=== PATIENT | female | born 1970 | race Caucasian/White ===

== ENCOUNTER 2017-05-26 19:11 | Emergency (ER) | payer OTHER ==
[2017-05-26] MEDS ORDERED: TETANUS/DIPHTHERIA/PERTUSSIS 0.5 ML SYRINGE IM ONE (19:58)
[2017-05-26 21:55] VITALS: BP 106/68
--- NOTE | 2017-05-26 21:57 | ED Physician Documentation ---
PD HPI ANIMAL BITE - Stated complaint Stated Complaint: CAT BITE - Chief complaint Chief Complaint: Laceration - History obtained from History obtained from: Patient - History of Present Illness Location of injury(ies): RUE (wrist and forearm) Details of the event: Cat, Pet animal, Well appearing Timing - onset: Today Timing - details: Abrupt onset, Still present Worsened by: Palpating. No: Moving Associated symptoms: Swelling. 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, Other - Present Medications Home Medications: Ambulatory Orders Medication Instructions Recorded Confirmed Amox/Clav 875/125 [Augmentin] 1 each PO BID #10 tablet 05/26/17 - Allergies Allergies/Adverse Reactions: Allergies Allergy/AdvReac Type Severity Reaction Status Date / Time acetaminophen AdvReac Severe Anxiety Verified 05/26/17 19:55 [From Darvocet-N 100] meperidine HCl * AdvReac Severe Anxiety Verified 05/26/17 19:55 [From Demerol] propoxyphene napsylate * AdvReac Severe Anxiety Verified 05/26/17 19:55 [From Darvocet-N 100] - Social History Does the pt smoke?: No Smoking Status: Never smoker Does the pt drink ETOH?: No Does the pt have substance abuse?: No - Immunizations Immunizations are current?: Yes - POLST Patient has POLST: No PD ED PE NORMAL - Vitals Vital signs reviewed: Yes - General General: Alert and oriented X 3, No acute distress, Well developed/nourished - Derm Derm: Normal color, Warm and dry - Extremities Extremities: Other (right wrist and forearm with small puncture lacs without bleeding. She is able to flex and extend at wrist and fingers without pain. ) - Neuro Neuro: Alert and oriented X 3, No motor deficit, No sensory deficit Results - Vitals Vitals: Oxygen O2 Source Room air PD MEDICAL DECISION MAKING - ED course Complexity details: considered differential, d/w patient Departure - Departure Disposition: 01 Home, Self Care Clinical Impression: Cat bite Qualifiers: Encounter type: initial encounter Qualified Code(s): W55.01XA - Bitten by cat, initial encounter Condition: Stable Record reviewed to determine appropriate education?: Yes Instructions: ED Bite Animal General Follow-Up: Romy Martinez ARNP [Primary Care Provider] - Prescriptions: Amox/Clav 875/125 [Augmentin] 1 each PO BID #10 tablet Comments: Cleanse wound to 3 times a day with soap and water and apply some ointment. Bites like this are higher risk for infection so we commonly go some antibiotics Augmentin twice daily for 3-5 days. Recheck if signs of infection. Tylenol or ibuprofen if needed for pains. You did receive a tetanus booster here. Discharge Date/Time: 05/26/17 22:30
[2017-05-26] MEDS ORDERED: AMOX/CLAV 875 MG/125 MG TABLET PO STA (22:18)
== END 2017-05-26 22:30 | disposition home or self-care (01) ==
LOC: ED 19:11
DX: S61.531A Puncture wound without foreign body of right wrist, initial encounter (principal); S51.831A Puncture wound without foreign body of right forearm, initial encounter; W55.01XA Bitten by cat, initial encounter; Z86.718 Personal history of other venous thrombosis and embolism; Z23 Encounter for immunization
CPT/HCPCS: 90471; 90715; 99283; A9270

== ENCOUNTER 2017-05-27 21:55 | Emergency (ER) | payer OTHER ==
--- NOTE | 2017-05-27 21:57 | ED Physician Documentation ---
PD HPI ANIMAL BITE - Stated complaint Stated Complaint: CAT BITE/FEVER - History obtained from History obtained from: Patient - History of Present Illness Location of injury(ies): RUE (wrist) Details of the event: Cat Timing - onset: Yesterday (see ER note from yesterday.) Timing - details: Abrupt onset Recently seen: Emergency Dept (yesterday after the original bite.) Review of Systems Constitutional: reports: Fever (subjective earlier). 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, Other - Present Medications Home Medications: Ambulatory Orders Medication Instructions Recorded Confirmed Amox/Clav 875/125 [Augmentin] 1 each PO BID #10 tablet 05/26/17 - Allergies Allergies/Adverse Reactions: Allergies Allergy/AdvReac Type Severity Reaction Status Date / Time acetaminophen AdvReac Severe Anxiety Verified 05/26/17 19:55 [From Darvocet-N 100] meperidine HCl * AdvReac Severe Anxiety Verified 05/26/17 19:55 [From Demerol] propoxyphene napsylate * AdvReac Severe Anxiety Verified 05/26/17 19:55 [From Darvocet-N 100] - Social History Does the pt smoke?: No Smoking Status: Never smoker Does the pt drink ETOH?: No Does the pt have substance abuse?: No - Immunizations Immunizations are current?: Yes - POLST Patient has POLST: No PD ED PE NORMAL - Vitals Vital signs reviewed: Yes - General General: Alert and oriented X 3, No acute distress, Well developed/nourished - Derm Derm: Warm and dry, Other (redness dorsum wrist with swelling that extends to distal forearm. No pain with passive ROM of the fingers. Active ROM of the wrist hurts at wound. ) - Extremities Extremities: No deformity, No tenderness to palpate - Neuro Neuro: Alert and oriented X 3, No motor deficit, Normal speech Results - Vitals Vitals: Vital Signs - 24 hr 05/27/17 05/27/17 21:59 23:29 Temperature 36.0 C L Heart Rate 93 79 Respiratory 18 18 Rate Blood Pressure 114/79 101/64 O2 Saturation 93 95 Oxygen O2 Source Room air PD MEDICAL DECISION MAKING - ED course Complexity details: reviewed old records, considered differential (Blossoming wound infection from bite yesterday. Presume Pasteurella. Will give IV dose abx. She is not seeming septic. Consider early tenosynovbitis, though not clearly there at this point. To recheck in 1-2 days. ), d/w patient Departure - Departure Disposition: 01 Home, Self Care Clinical Impression: Infected hand Cat bite Qualifiers: Encounter type: initial encounter Qualified Code(s): W55.01XA - Bitten by cat, initial encounter Condition: Stable Record reviewed to determine appropriate education?: Yes Follow-Up: Romy Martienz ARNP [Primary Care Provider] - Comments: Continue the current antibiotics Augmentin twice daily. Use a wrist splint to help support the wrist. Use the hydrocodone if needed for pain. Recheck in 1- 2 days with your primary care if starting to do better. Return to the ER tomorrow if it is worsening. Discharge Date/Time: 05/27/17 23:29
[2017-05-27] MEDS ORDERED: KETOROLAC 60 MG/2 ML VIAL IVP STA (22:18)
[2017-05-27] MEDS ORDERED: AMPICILLIN/SULBACTAM 1.5 GM in SODIUM CHLORIDE 0.9% MINIBAG 100 ML IV STA (22:18)
[2017-05-27] MEDS ORDERED: HYDROcod/ACET 5/325 Prepack 4 PO STA (22:59)
[2017-05-27 23:30] VITALS: BP 101/64
== END 2017-05-27 23:29 | disposition home or self-care (01) ==
LOC: ED 21:55
DX: S60.871A Other superficial bite of right wrist, initial encounter (principal); L08.9 Local infection of the skin and subcutaneous tissue, unspecified; W55.01XA Bitten by cat, initial encounter
CPT/HCPCS: 96374; 96375; 99283

== ENCOUNTER 2017-05-28 15:16 | Emergency (ER) | payer OTHER ==
[2017-05-28] MEDS ORDERED: AMPICILLIN/SULBACTAM 3 GM in SODIUM CHLORIDE 0.9% MINIBAG 100 ML IV STA (16:04)
--- NOTE | 2017-05-28 16:07 | ED Physician Documentation ---
PD HPI UPPER EXT INJURY - Stated complaint Stated Complaint: FEVER/CAT BITE RT HAND - Chief complaint Chief Complaint: Ext Problem - History obtained from History obtained from: Patient - History of Present Illness Location: Other (2 nights ago around 7:00 she was bitten to the right wrist by her indoor and fully immunized cat. She came in and got a tetanus shot and was started on Augmentin but she has had progressive cellulitis and pain there. She was seen here last night and given a dose of IV Unasyn. Told to return if it gets worse. She actually got worse this morning but somewhat got better this afternoon. 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 - Present Medications Home Medications: Ambulatory Orders Medication Instructions Recorded Confirmed Amox/Clav 875/125 [Augmentin] 1 each PO BID #10 tablet 05/26/17 - Allergies Allergies/Adverse Reactions: Allergies Allergy/AdvReac Type Severity Reaction Status Date / Time acetaminophen AdvReac Severe Anxiety Verified 05/28/17 15:29 [From Darvocet-N 100] meperidine HCl * AdvReac Severe Anxiety Verified 05/28/17 15:29 [From Demerol] propoxyphene napsylate * AdvReac Severe Anxiety Verified 05/28/17 15:29 [From Darvocet-N 100] - Social History Does the pt smoke?: No Smoking Status: Never smoker Does the pt drink ETOH?: No Does the pt have substance abuse?: No - Immunizations Immunizations are current?: Yes - POLST Patient has POLST: No PD ED PE NORMAL - Vitals Vital signs reviewed: Yes - General General: Alert and oriented X 3, No acute distress - HEENT HEENT: PERRL, EOMI - Neck Neck: Supple, no meningeal sign, No bony TTP - Cardiac Cardiac: RRR, No murmur - Respiratory Respiratory: No respiratory distress, Clear bilaterally - Abdomen Abdomen: Normal bowel sounds, Soft, Non tender - Back Back: No CVA TTP, No spinal TTP - Derm Derm: Normal color, Warm and dry - Extremities Extremities: Other (There is 2 puncture wounds near the right wrist, one dorsally kind of over the lunate probably. I was able to get some fluid from this wound and it was sent for culture. There is another smaller wound over the radial side of the wrist. There is modest swelling over the carpals in the hand and diminished range of motion somewhat of the wrist in flexion and extension. It is not severely tender and not locked in position though.) - Neuro Neuro: Alert and oriented X 3, Normal speech Results - Vitals Vitals: Vital Signs - 24 hr 05/28/17 15:26 Temperature 36.9 C Heart Rate 81 Respiratory 16 Rate Blood Pressure 113/68 O2 Saturation 98 Oxygen O2 Source Room air - Labs Labs: Laboratory Tests 05/28/17 05/28/17 16:15 16:15 WBC 8.1 RBC 4.28 Hgb 13.2 Hct 40.0 MCV 93.5 MCH 30.8 MCHC 32.9 RDW 12.4 Plt Count 279 MPV 7.5 L Neut # 5.4 Lymph # 1.6 Letcher # 0.7 Eos # 0.4 Baso # 0.1 Absolute Nucleated RBC 0.00 Nucleated RBC % 0.0 Sodium 137 Potassium 3.4 L Chloride 103 Carbon Dioxide 25 Anion Gap 9.0 BUN 11 Creatinine 0.7 Estimated GFR (MDRD) 89 Glucose 106 H Calcium 8.7 PD MEDICAL DECISION MAKING - ED course ED course: So she does have limited range of motion, but she says she is better this afternoon than she was this morning and she does have some range of motion. Case was discussed by phone with the orthopedic consultants, Dr. Bolton who feels like another day of oral antibiotics is warranted before more aggressive care. Departure - Departure Disposition: 01 Home, Self Care Clinical Impression: Infected hand Cat bite Qualifiers: Encounter type: initial encounter Qualified Code(s): W55.01XA - Bitten by cat, initial encounter Condition: Good Record reviewed to determine appropriate education?: Yes Comments: As discussed I expect continued improved symptoms over the next 12-24 hours. If that is not happening please return tomorrow for reevaluation.
[2017-05-28 16:24] LABS: BASOPHILS # (AUTO) 0.1 10^3/uL (0.0-0.1); BASOPHILS % (AUTO) 0.9 %; EOSINOPHILS # (AUTO) 0.4 10^3/uL (0.0-0.7); EOSINOPHILS % (AUTO) 4.5 %; HGB - HEMOGLOBIN 13.2 g/dL (12.0-16.0); LYMPHOCYTES # (AUTO) 1.6 10^3/uL (1.5-3.5); LYMPHOCYTES % (AUTO) 19.4 %; MEAN CORPUSCULAR HEMOGLOBIN 30.8 pg (27.0-31.0); MEAN CORPUSCULAR HGB CONC 32.9 g/dL (32.0-36.0); MEAN CORPUSCULAR VOLUME 93.5 fL (81.0-99.0); MEAN PLATELET VOLUME 7.5 fL (7.9-10.8); MONOCYTES # (AUTO) 0.7 10^3/uL (0.0-1.0); MONOCYTES % (AUTO) 8.6 %; NEUTROPHILS # (AUTO) 5.4 10^3/uL (1.5-6.6); NEUTROPHILS % (AUTO) 66.6 %; PLT - PLATELET COUNT 279 10^3/uL (130-450); RED BLOOD COUNT 4.28 10^6/uL (4.20-5.40); RED CELL DISTRIBUTION WIDTH 12.4 % (12.0-15.0); WHITE BLOOD COUNT 8.1 x10^3/uL (4.8-10.8)
[2017-05-28 16:32] LABS: CALCIUM 8.7 mg/dL (8.5-10.3); CREATININE 0.7 mg/dL (0.4-1.0)
[2017-05-28 17:29] VITALS: BP 113/64
== END 2017-05-28 17:23 | disposition home or self-care (01) ==
LOC: ED 15:16
DX: S61.431D Puncture wound without foreign body of right hand, subsequent encounter (principal); L03.113 Cellulitis of right upper limb; W55.01XD Bitten by cat, subsequent encounter; Z86.718 Personal history of other venous thrombosis and embolism
CPT/HCPCS: 36415; 80048; 85025; 87070; 87205; 99283

== ENCOUNTER 2017-05-28 22:26 | Inpatient (IN) | payer OTHER ==
[2017-05-28] MEDS ORDERED: AMPICILLIN/SULBACTAM 3 GM in SODIUM CHLORIDE 0.9% MINIBAG 100 ML IV STA (23:30)
[2017-05-28] MEDS ORDERED: VANCOMYCIN INJ 1.5 GM in SODIUM CHLORIDE 0.9% 500 ML IV STA (23:30)
--- NOTE | 2017-05-28 23:32 | ED Physician Documentation ---
PD HPI UPPER EXT INJURY - Stated complaint Stated Complaint: RT HAND/ARM SWELL - Chief complaint Chief Complaint: Ext Problem - History obtained from History obtained from: Patient - History of Present Illness Location: Right, Wrist Type of injury: Other (See my earlier note, basically a cat bite at home a little over 2 days ago now with signs of infection. Worse and febrile tonight. Fourth visit to the ER. Not much pain though. 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 - Present Medications Home Medications: Ambulatory Orders Medication Instructions Recorded Confirmed Amox/Clav 875/125 [Augmentin] 1 each PO BID #10 tablet 05/26/17 - Allergies Allergies/Adverse Reactions: Allergies Allergy/AdvReac Type Severity Reaction Status Date / Time acetaminophen AdvReac Severe Anxiety Verified 05/28/17 22:35 [From Darvocet-N 100] meperidine HCl * AdvReac Severe Anxiety Verified 05/28/17 22:35 [From Demerol] propoxyphene napsylate * AdvReac Severe Anxiety Verified 05/28/17 22:35 [From Darvocet-N 100] - Social History Does the pt smoke?: No Smoking Status: Never smoker Does the pt drink ETOH?: No Does the pt have substance abuse?: No - Family History Family history: reports: Non contributory - Immunizations Immunizations are current?: Yes - POLST Patient has POLST: No PD ED PE NORMAL - Vitals Vital signs reviewed: Yes - General General: Alert and oriented X 3, No acute distress - HEENT HEENT: PERRL, EOMI - Neck Neck: Supple, no meningeal sign, No bony TTP - Cardiac Cardiac: RRR, No murmur - Respiratory Respiratory: No respiratory distress, Clear bilaterally - Abdomen Abdomen: Soft, Non tender - Back Back: No CVA TTP, No spinal TTP - Derm Derm: Normal color, Warm and dry - Extremities Extremities: No deformity, No tenderness to palpate, Other (She has cellulitis from the metacarpals distally now to about a third of the way up the forearm and she has less range of motion at the right wrist than she did earlier in the day.) - Neuro Neuro: Alert and oriented X 3, Normal speech - Psych Psych: Normal mood, Normal affect Results - Vitals Vitals: Vital Signs - 24 hr 05/28/17 22:31 Temperature 38.5 C H Heart Rate 78 Respiratory 18 Rate Blood Pressure 118/67 O2 Saturation 99 Oxygen O2 Source Room air PD MEDICAL DECISION MAKING - ED course ED course: 46-year-old woman with cat bite related cellulitis that is worsening despite outpatient treatment and now febrile. Spoke with Dr. Weaver, the on-call orthopedist who will see in consult. Gave her vancomycin and Unasyn here in the ER and called to Dr. Rose for admission at 11:33 PM. Note made that a wound culture was done earlier in the day on prior account. Departure - Departure Disposition: [facility] DC/Xfer Clinical Impression: Infected hand Cat bite Qualifiers: Encounter type: initial encounter Qualified Code(s): W55.01XA - Bitten by cat, initial encounter Condition: Stable
[2017-05-29] MEDS ORDERED: IBUPROFEN 600 MG TABLET PO PRN (00:40)
[2017-05-29] MEDS ORDERED: MORPHINE 2 MG/ML CARPUJECT IVP PRN (00:40)
[2017-05-29] MEDS ORDERED: ONDANSETRON 4 MG/2 ML VIAL IVP PRN (00:40)
[2017-05-29] MEDS ORDERED: TEMAZEPAM 15 MG CAPSULE PO PRN (00:40)
[2017-05-29] MEDS ORDERED: SODIUM CHLORIDE FLUSH 0.9% 10 ML SYRINGE IVP PRN (00:40)
[2017-05-29] MEDS ORDERED: VANCOMYCIN 1 GM VIAL ONE (00:42)
[2017-05-29] MEDS: SODIUM CHLORIDE FLUSH 0.9% 10 ML SYRINGE IVP SCH ×3 (02:51→16:11)
[2017-05-29] MEDS: DEXTROSE 5%-0.9% NACL 1,000 ML IV SCH ×2 (02:51→14:12)
--- NOTE | 2017-05-29 04:18 | HISTORY & PHYSICAL EXAMINATION ---
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 She takes no prescription medications. Two days ago, she was bitten by her cat on the dorsal aspect of her right wrist and came to the emergency room. She was given tetanus prophylaxis and sent home with antibiotics. She developed worsening swelling and pain in the area and has now had 4 evaluations in the emergency room, including this one, with swelling that was increasing and now a fever as high as 39. She is being admitted for cellulitis after a cat bite and failure of p.o. antibiotics. She has had no other fever until now. She had pain and was using only an ice pack, because she is allergic to several pain meds. REVIEW OF SYSTEMS: A comprehensive review of systems was performed and the pertinent positives are as above, all else are negative. PAST MEDICAL HISTORY: Vertigo after general anesthesia for a INTERNET SALES DIRECTOR surgery. MEDICATIONS AT HOME: None, except for recent oral Augmentin. ALLERGIES 1. TYLENOL. 2. DEMEROL. 3. PROPOXYPHENE. 4. MORPHINE. SOCIAL HISTORY: She is a nonsmoker, who never smoked. Drinks social alcohol. No illicit drug use. 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 FAMILY HISTORY: No inherited diseases. PHYSICAL EXAMINATION GENERAL: White female who is in no distress. VITAL SIGNS: Blood pressure 115/65, pulse of 70 and sinus rhythm, 38.5 was her most recent temperature, room air saturation 98%. HEENT: Unremarkable. NECK: Without JVD or carotid bruits. LUNGS: Clear. HEART: Heart sounds normal. No audible murmur. ABDOMEN: Soft, positive bowel sounds, nontender. EXTREMITIES: The legs have no clubbing, cyanosis or edema. The right dorsum of the wrist has a 2 mm red dasha from the cat bite and surrounding that and going distally toward the hand there is swelling, but no redness and there is mild warmth and tenderness. NEUROLOGIC: Intact. LABORATORIES: Sodium 137, potassium 3.4, normal BUN and creatinine. White blood count 8.1, hemoglobin 13.2, platelet count 279. No imaging was done. No EKG was done. IMPRESSION 1. Cellulitis of the right lower arm. 2. Cat bite of the right wrist. 3. Infected cat bite of the wrist. PLAN: IV pain medications. IV antibiotics. Orthopedic consult for further management advice. DEEP VENOUS THROMBOSIS PROPHYLAXIS: SCDs. CODE STATUS: FULL CODE. ATTESTATION: The patient is expected to be discharged or transferred to another facility within 96 hours: Yes. TD: 05/29/2017 04:17 [facility]
[2017-05-29 06:14] LABS: BASOPHILS # (AUTO) 0.1 10^3/uL (0.0-0.1); BASOPHILS % (AUTO) 0.8 %; EOSINOPHILS # (AUTO) 0.5 10^3/uL (0.0-0.7); HGB - HEMOGLOBIN 12.9 g/dL (12.0-16.0); LYMPHOCYTES # (AUTO) 2.2 10^3/uL (1.5-3.5); LYMPHOCYTES % (AUTO) 31.1 %; MEAN CORPUSCULAR HEMOGLOBIN 31.2 pg (27.0-31.0); MEAN CORPUSCULAR VOLUME 94.5 fL (81.0-99.0); MEAN PLATELET VOLUME 7.6 fL (7.9-10.8); MONOCYTES # (AUTO) 0.6 10^3/uL (0.0-1.0); MONOCYTES % (AUTO) 9.1 %; NEUTROPHILS # (AUTO) 3.7 10^3/uL (1.5-6.6); PLT - PLATELET COUNT 247 10^3/uL (130-450); RED BLOOD COUNT 4.13 10^6/uL (4.20-5.40); RED CELL DISTRIBUTION WIDTH 12.6 % (12.0-15.0); WHITE BLOOD COUNT 7.1 x10^3/uL (4.8-10.8)
[2017-05-29] MEDS: AMPICILLIN/SULBACTAM 3 GM in SODIUM CHLORIDE 0.9% MINIBAG 100 ML IV SCH ×2 (09:00→16:09)
[2017-05-29] MEDS: FAMOTIDINE 20 MG TABLET PO SCH (09:07)
[2017-05-29] MEDS: POLYETHYLENE GLYCOL 3350 17 GM PACKET PO SCH (09:07)
--- NOTE | 2017-05-29 11:00 | CONSULTATION NOTE ---
DATE OF SERVICE: 05/29/2017 Physician: Castillo Forbes MD HISTORY OF PRESENT ILLNESS: This 46-year-old woman was admitted to the ER last night after her third presentation following a cat bite to her right dominant hand. Three days ago, her pet bit her towards the radial aspect of the wrist with 2 tooth carrasco dorsal and 1 to the radial aspect. She did clean the wounds very well initially. The day following in the evening, she presented to the emergency room having increased redness and pain. She got an IV medication after which she improved and went home. She was home on Augmentin twice a day. The following evening, she came in again because of a bright red discoloration and swelling, which went from her distal forearm all the way to the tips of her fingers on the dorsal side. Again she got some IV antibiotics, improved a great deal, and went home. Last night, she presented again with similar pattern, although she thinks it was even redder than it had been before and definitely more swollen. She has been in the hospital overnight. She reports at home, and here in the hospital, she had her forearm and hand elevated. This morning she notes she is entirely improved except just around the original bite carrasco. PAST MEDICAL HISTORY: Unremarkable regarding this problem. 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 She is retired [employer]. PHYSICAL EXAMINATION GENERAL: She is a very pleasant, thin woman in no acute distress. EXTREMITIES: In her right upper extremity, she has very mild swelling across the dorsal wrist, dorsal hand, and no swelling in the digits. She can flex and extend her wrist 20-30 degrees without any pain. She can passively and actively flex the MCP joints to almost 90 degrees without pain. She is neurovascularly intact in the digits. There is no purulence from her wounds. Wound sites are as above. There are no lymphangitic streaks. IMPRESSION: Infection following cat bite. By history of the antibiotics, it would appear that vancomycin is more effective than Unasyn and Augmentin. PLAN: I recommend she continue on the IV vancomycin for a day or two further until this is clearly fully under control. Perhaps she can be sent home on Bactrim as she may have a staphylococcal organism. I will follow. TD: 05/29/2017 09:27
[2017-05-29] MEDS: ACETAMINOPHEN 325 MG TABLET PO PRN ×2 (11:44→19:23)
[2017-05-29] MEDS: FLUCONAZOLE 100 MG TABLET PO SCH (11:47)
[2017-05-29] MEDS: SACCHAROMYCES BOULARDII 250 MG CAPSULE PO SCH (17:17)
[2017-05-29 17:22] LABS: CREATININE 0.5 mg/dL (0.4-1.0)
[2017-05-29] MEDS ORDERED: VANCOMYCIN INJ 0.75 GM in SODIUM CHLORIDE 0.9% 250 ML IV SCH (18:00)
[2017-05-29] MEDS: VANCOMYCIN INJ 1 GM in SODIUM CHLORIDE 0.9% 250 ML IV SCH (19:22)
[2017-05-29] MEDS ORDERED: VANCOMYCIN PER PHARMACY 0.00001 GM in SODIUM CHLORIDE 0.9% 250 ML IV PRN (21:00)
[2017-05-30] MEDS: DEXTROSE 5%-0.9% NACL 1,000 ML IV SCH ×3 (00:11→17:52)
[2017-05-30] MEDS: SODIUM CHLORIDE FLUSH 0.9% 10 ML SYRINGE IVP SCH ×3 (00:11→19:39)
[2017-05-30] MEDS: AMPICILLIN/SULBACTAM 3 GM in SODIUM CHLORIDE 0.9% MINIBAG 100 ML IV SCH ×3 (00:23→16:35)
[2017-05-30] MEDS: VANCOMYCIN INJ 1 GM in SODIUM CHLORIDE 0.9% 250 ML IV SCH ×2 (05:15→17:52)
[2017-05-30 06:37] LABS: CREATININE 0.6 mg/dL (0.4-1.0)
--- NOTE | 2017-05-30 08:03 | PROVIDER PROGRESS NOTE ---
Subjective - Prog Note Date Prog Note Date: 05/30/17 Prog Note Time: 08:01 - Subjective Pt reports feeling: Improved, No change Subjective: Toshia became tearful about going home too soon. She denies SOB, chest pain, N/ V or a new cough. Current Medications - Current Medications Current Medications: Active Medications Acetaminophen (Tylenol) 650 mg PO Q4HR PRN PRN Reason: Pain or Fever > 38C (100.4F) Last Admin: 05/31/17 07:28 Dose: 650 mg Famotidine (Pepcid) 20 mg PO DAILY [facility] Last Admin: 05/31/17 09:01 Dose: 20 mg Fluconazole (Diflucan) 100 mg PO DAILY [facility] Last Admin: 05/31/17 09:01 Dose: 100 mg Dextrose/Sodium Chloride (D5ns) 1,000 mls @ 100 mls/hr IV .Q10H [facility] Last Admin: 05/31/17 05:24 Dose: 100 mls/hr Ampicillin Sodium/Sulbactam (Sodium 3 gm/ Sodium Chloride) 100 mls @ 200 mls/ hr IV Q8H [facility] Last Infusion: 05/31/17 09:44 Dose: Infused Vancomycin HCl 1 gm/ Sodium (Chloride) 250 mls @ 167 mls/hr IV Q12H [facility] Last Infusion: 05/31/17 06:55 Dose: Infused Ibuprofen (Motrin) 600 mg PO Q6HR PRN PRN Reason: Pain or Fever > 38C (100.4F) Ondansetron HCl (Zofran Inj) 4 mg IVP Q6HR PRN PRN Reason: Nausea / Vomiting Phenazopyridine HCl (Pyridium) 100 mg PO TID PRN PRN Reason: PAIN Polyethylene Glycol (Miralax) 17 gm PO DAILY [facility] Last Admin: 05/31/17 09:07 Dose: Not Given Saccharomyces Boulardii (Florastor) 500 mg PO BIDWM [facility] Last Admin: 05/31/17 09:00 Dose: 500 mg Sodium Chloride (Normal Saline Flush 0.9%) 10 ml IVP PRN PRN PRN Reason: NEEDED PER PROVIDER ORDERS Sodium Chloride (Normal Saline Flush 0.9%) 10 ml IVP 0100,0900,1700 [facility] Last Admin: 05/31/17 09:07 Dose: Not Given Temazepam (Restoril) 15 mg PO QPM PRN PRN Reason: Insomnia Calcium Carbonate 600 mg PO DAILY 05/29/17 Cholecalciferol (Vitamin D3) [Vitamin D3] 1,000 unit PO DAILY 05/29/17 Vitamin B Complex 1 tab PO DAILY 05/29/17 Objective - Vital Signs/Intake & Output Reviewed Vital Signs: Yes Vital Signs: Vital Signs x48h Temp Pulse Resp BP Pulse Ox 05/30/17 00:20 36.8 C 70 16 93/54 L 98 Intake & Output: Intake & Output 05/27/17 05/28/17 05/29/17 05/30/17 23:59 23:59 23:59 23:59 Intake Total 2670 1250 Output Total 1 Balance 2670 1249 - Objective General Appearance: positive: No acute distress, Alert Eyes Bilateral: positive: Normal inspection, PERRL ENT: positive: ENT inspection nml, Pharynx nml, No signs of dehydration Neck: positive: Nml inspection, Thyroid nml, No JVD, Trachea midline Respiratory: positive: Chest non-tender, No respiratory distress, Breath sounds nml Cardiovascular: positive: Regular rate & rhythm, No murmur, No gallop Peripheral Pulses: 1+ Radial (R), 2+ Radial (L) Abdomen: positive: Non-tender, No organomegaly, Nml bowel sounds Back: positive: Nml inspection Skin: positive: Color nml, No rash, Warm, Dry Extremities: positive: Non-tender, Full ROM, Nml appearance, No pedal edema Neurologic/Psychiatric: positive: Oriented x3, CN's nml (2-12), Motor nml, Sensation nml, Mood/affect nml Reflexes: Bicep (R): 4+, Bicep (L): 4+ - Lab Results Fish Bones: 05/31/17 06:06 05/31/17 06:06 Other Labs: Lab Results x24hrs 05/30/17 05/29/17 Range/Units 06:19 17:05 Creatinine 0.6 0.5 (0.4-1.0) mg/dL Estimated GFR (MDRD) 107 132 (>89) - Diagnostic Imaging Diagnostic Imaging Results: positive: Prelim report reviewed, Final report reviewed Assessment/Plan - Problem List (1) Cellulitis of hand without finger or thumb, right Impression: Patient has a cat named Shannan payne on 05/26/17 accidentally bit her on her right wrist. She has been to the ED 4 times and a wound culture was obtained on 05/28/17, which remains NGTD. Plan: Continue antibiotics vanco and ampicillian. (2) Cat bite Impression: The patient has a cat that everyone calls "jennifer" but has a legal name of Shannan who unfortunately bit Toshia Prasad on the right wrist. This is not a case of animal protection, as this is described as merely an accident. Apparently, the cat became frightened when he nearly stuck to the ceiling a short time later. 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 Qualifiers: Encounter type: initial encounter Qualified Code(s): W55.01XA - Bitten by cat, initial encounter (3) Vaginal candidiasis Impression: Patient complains of itching in her mami area, and refused an exam. She states that she has a history of "yeast infections" and this is similar. Plan: Probiotic was added and diflucan. (4) Tenosynovitis of right wrist Impression: The patient exhibits mild discomfort while palpating the right second and fifth fingers and no swelling is appreciated. There is no evidence of tendon rupture , compartment syndrome or necrosis. The patient admits to using her hand more and her wound is improving. Plan: Continue to monitor, and if this becomes worse, imaging may be warranted.
[2017-05-30] MEDS: FAMOTIDINE 20 MG TABLET PO SCH (08:41)
[2017-05-30] MEDS: SACCHAROMYCES BOULARDII 250 MG CAPSULE PO SCH ×2 (08:41→17:55)
[2017-05-30] MEDS: POLYETHYLENE GLYCOL 3350 17 GM PACKET PO SCH (08:42)
[2017-05-30] MEDS: FLUCONAZOLE 100 MG TABLET PO SCH (08:42)
--- NOTE | 2017-05-30 09:07 | PROVIDER PROGRESS NOTE ---
Subjective - General Admit Date: 05/29/17 - Review of Systems Wound/Incisions: positive: No drainage Objective - Patient Data Vital Signs: Vital Signs x48h Temp Pulse Resp BP Pulse Ox 05/30/17 08:17 36.8 C 70 16 99/63 99 Weight: Weight 05/28/17 05/29/17 05/30/17 23:59 23:59 23:59 Weight (kg) 58.5 kg Intake & Output: Intake and Output Totals x24h 05/28/17 05/29/17 05/30/17 23:59 23:59 23:59 Intake Total 2670 1500 Output Total 1 Balance 2670 1499 - Lab Results Lab Results: 05/29/17 05:52 05/30/17 06:19 Other Lab Results: Lab Results x24hrs 05/30/17 05/29/17 Range/Units 06:19 17:05 Creatinine 0.6 0.5 (0.4-1.0) mg/dL Estimated GFR (MDRD) 107 132 (>89) - Current Medications Current Medications: Current Medications Generic Name Dose Route Start Last Admin Trade Name Freq PRN Reason Stop Dose Admin Acetaminophen 650 mg 05/29/17 11:30 05/29/17 19:23 Tylenol PO 650 mg Q4HR PRN Administration Pain or Fever > 38C (100.4F) Famotidine 20 mg 05/29/17 09:00 05/30/17 08:41 Pepcid PO 20 mg DAILY SARAH Administration Fluconazole 100 mg 05/29/17 12:00 05/30/17 08:42 Diflucan PO Not Given DAILY SARAH Dextrose/Sodium Chloride 1,000 mls @ 100 mls/hr 05/29/17 01:00 05/30/17 03:45 D5ns IV 100 mls/hr .Q10H SARAH Administration Ampicillin Sodium/Sulbactam 100 mls @ 200 mls/hr 05/29/17 08:00 05/30/17 08: 38 Sodium 3 gm/ Sodium Chloride IV 200 mls/hr Q8H SARAH Administration Vancomycin HCl 1 gm/ Sodium 250 mls @ 167 mls/hr 05/29/17 18:00 05/30/17 08: 57 Chloride IV Infused Q12H SARAH Infusion Polyethylene Glycol 17 gm 05/29/17 09:00 05/30/17 08:42 Miralax PO Not Given DAILY [facility] Saccharomyces Boulardii 500 mg 05/29/17 17:00 05/30/17 08:41 Florastor PO 500 mg BIDWM [facility] Administration Sodium Chloride 10 ml 05/29/17 01:00 05/30/17 08:43 Normal Saline Flush 0.9% IVP Not Given 0100,0900,1700 [facility] - Physical Exam Wound/Incisions: positive: No drainage General Appearance: positive: No acute distress, Alert Extremities: positive: Full ROM, Nml appearance, Other ( DOrsal right wrist/ forearm with mild dorso-ulnar edema and tenderness. WOund area also tender. No erythema or streaks. Limited dorsiflex and palmarflex of wrist. FUll supination and pronation. Able to touch thumb to 5th digit.) Impression/Plan - Problem List Problem List: Infection not resolved yet. I recommend another day (or more) on IV antibiotics.
--- NOTE | 2017-05-30 09:10 | PROVIDER PROGRESS NOTE ---
Subjective - General Admit Date: 05/29/17 - Review of Systems Wound/Incisions: positive: No drainage Objective - Patient Data Vital Signs: Vital Signs x48h Temp Pulse Resp BP Pulse Ox 05/30/17 08:17 36.8 C 70 16 99/63 99 Weight: Weight 05/28/17 05/29/17 05/30/17 23:59 23:59 23:59 Weight (kg) 58.5 kg Intake & Output: Intake and Output Totals x24h 05/28/17 05/29/17 05/30/17 23:59 23:59 23:59 Intake Total 2670 1500 Output Total 1 Balance 2670 1499 - Lab Results Lab Results: 05/29/17 05:52 05/30/17 06:19 Other Lab Results: Lab Results x24hrs 05/30/17 05/29/17 Range/Units 06:19 17:05 Creatinine 0.6 0.5 (0.4-1.0) mg/dL Estimated GFR (MDRD) 107 132 (>89) - Current Medications Current Medications: Current Medications Generic Name Dose Route Start Last Admin Trade Name Freq PRN Reason Stop Dose Admin Acetaminophen 650 mg 05/29/17 11:30 05/29/17 19:23 Tylenol PO 650 mg Q4HR PRN Administration Pain or Fever > 38C (100.4F) Famotidine 20 mg 05/29/17 09:00 05/30/17 08:41 Pepcid PO 20 mg DAILY SARAH Administration Fluconazole 100 mg 05/29/17 12:00 05/30/17 08:42 Diflucan PO Not Given DAILY [facility] Dextrose/Sodium Chloride 1,000 mls @ 100 mls/hr 05/29/17 01:00 05/30/17 03:45 D5ns IV 100 mls/hr .Q10H [facility] Administration Ampicillin Sodium/Sulbactam 100 mls @ 200 mls/hr 05/29/17 08:00 05/30/17 08: 38 Sodium 3 gm/ Sodium Chloride IV 200 mls/hr Q8H [facility] Administration Vancomycin HCl 1 gm/ Sodium 250 mls @ 167 mls/hr 05/29/17 18:00 05/30/17 08: 57 Chloride IV Infused Q12H SARAH Infusion Polyethylene Glycol 17 gm 05/29/17 09:00 05/30/17 08:42 Miralax PO Not Given DAILY [facility] Saccharomyces Boulardii 500 mg 05/29/17 17:00 05/30/17 08:41 Florastor PO 500 mg BIDWM [facility] Administration Sodium Chloride 10 ml 05/29/17 01:00 05/30/17 08:43 Normal Saline Flush 0.9% IVP Not Given 0100,0900,1700 [facility] - Physical Exam Extremities: positive: Non-tender, Full ROM, Nml appearance, Other (RIght dorsal wrist and forearm. Ulnar mild edema and moderate tenderness. Wound area also tender. No erythema. Limited Wrist flex and extension. Able to tuch thumb tip to 5th digit. No streaks)
[2017-05-30] MEDS: ACETAMINOPHEN 325 MG TABLET PO PRN (13:17)
[2017-05-31] MEDS: AMPICILLIN/SULBACTAM 3 GM in SODIUM CHLORIDE 0.9% MINIBAG 100 ML IV SCH ×3 (00:16→17:15)
[2017-05-31] MEDS: SODIUM CHLORIDE FLUSH 0.9% 10 ML SYRINGE IVP SCH ×3 (00:22→19:16)
[2017-05-31] MEDS: DEXTROSE 5%-0.9% NACL 1,000 ML IV SCH ×2 (05:24→19:10)
[2017-05-31] MEDS: VANCOMYCIN INJ 1 GM in SODIUM CHLORIDE 0.9% 250 ML IV SCH ×2 (05:25→19:10)
[2017-05-31 06:36] LABS: BASOPHILS # (AUTO) 0.1 10^3/uL (0.0-0.1); BASOPHILS % (AUTO) 1.2 %; EOSINOPHILS # (AUTO) 0.5 10^3/uL (0.0-0.7); EOSINOPHILS % (AUTO) 9.9 %; HGB - HEMOGLOBIN 12.1 g/dL (12.0-16.0); LYMPHOCYTES # (AUTO) 2.1 10^3/uL (1.5-3.5); LYMPHOCYTES % (AUTO) 37.5 %; MEAN CORPUSCULAR HEMOGLOBIN 31.4 pg (27.0-31.0); MEAN CORPUSCULAR HGB CONC 33.6 g/dL (32.0-36.0); MEAN CORPUSCULAR VOLUME 93.5 fL (81.0-99.0); MEAN PLATELET VOLUME 7.4 fL (7.9-10.8); MONOCYTES # (AUTO) 0.5 10^3/uL (0.0-1.0); MONOCYTES % (AUTO) 9.2 %; NEUTROPHILS # (AUTO) 2.3 10^3/uL (1.5-6.6); NEUTROPHILS % (AUTO) 42.2 %; PLT - PLATELET COUNT 231 10^3/uL (130-450); RED BLOOD COUNT 3.84 10^6/uL (4.20-5.40); RED CELL DISTRIBUTION WIDTH 12.8 % (12.0-15.0); WHITE BLOOD COUNT 5.5 x10^3/uL (4.8-10.8)
[2017-05-31 06:55] LABS: ALBUMIN 3.2 g/dL (3.2-5.5); ALBUMIN/GLOBULIN RATIO 1.6 (1.0-2.2); ALKALINE PHOSPHATASE 38 IU/L (42-121); ALT ALANINE AMINOTRANSFERASE 10 IU/L (10-60); AST ASPARTATE AMINOTRANSFERASE 15 IU/L (10-42); BILIRUBIN,TOTAL 0.6 mg/dL (0.2-1.0); BUN - BLOOD UREA NITROGEN 9 mg/dL (6-20); CALCIUM 8.4 mg/dL (8.5-10.3); CARBON DIOXIDE - CO2 25 mmol/L (21-32); CHLORIDE 109 mmol/L (101-111); CREATININE 0.5 mg/dL (0.4-1.0); GFR - MDRD 132 (>89); GLUCOSE 99 mg/dL (70-100); MAGNESIUM 1.7 mg/dL (1.7-2.8); SODIUM 140 mmol/L (135-145); TOTAL PROTEIN 5.2 g/dL (6.7-8.2)
[2017-05-31 07:14] LABS: CRP - C-REACTIVE PROTEIN < 1.0 mg/dL (0-1.0)
[2017-05-31 07:16] LABS: VANCOMYCIN,TROUGH 31.2 ug/mL (5.0-15.0)
[2017-05-31] MEDS: ACETAMINOPHEN 325 MG TABLET PO PRN (07:28)
[2017-05-31] MEDS: SACCHAROMYCES BOULARDII 250 MG CAPSULE PO SCH ×2 (09:00→17:19)
[2017-05-31] MEDS: FAMOTIDINE 20 MG TABLET PO SCH (09:01)
[2017-05-31] MEDS: FLUCONAZOLE 100 MG TABLET PO SCH (09:01)
[2017-05-31] MEDS: POLYETHYLENE GLYCOL 3350 17 GM PACKET PO SCH (09:07)
--- NOTE | 2017-05-31 12:06 | PROVIDER PROGRESS NOTE ---
Subjective - General Admit Date: 05/29/17 Procedure Performed: none - Review of Systems Wound/Incisions: positive: No drainage, Erythema improving General: positive: No symptoms Musculoskeletal: positive: Other (No remaining edema excep within 1 cm of the bite dasha dorsally. Unable to flex wrist beyong 10-15 deg. Able to tightly clench fist.) Objective - Patient Data Vital Signs: Vital Signs x48h Temp Pulse Resp BP Pulse Ox 05/31/17 07:21 36.9 C 70 16 110/67 98 Weight: Weight 05/29/17 05/30/17 05/31/17 23:59 23:59 23:59 Weight (kg) 58.5 kg Intake & Output: Intake and Output Totals x24h 05/29/17 05/30/17 05/31/17 23:59 23:59 23:59 Intake Total 2670 4160 1690 Output Total 5 Balance 2670 4155 1690 - Lab Results Lab Results: 05/31/17 06:06 05/31/17 06:06 Other Lab Results: Lab Results x24hrs 05/31/17 05/31/17 05/31/17 Range/Units 06:06 06:06 06:06 WBC 5.5 (4.8-10.8) x10^3/uL RBC 3.84 L (4.20-5.40) 10^6/uL Hgb 12.1 (12.0-16.0) g/dL Hct 35.9 L (37.0-47.0) % MCV 93.5 (81.0-99.0) fL MCH 31.4 H (27.0-31.0) pg MCHC 33.6 (32.0-36.0) g/dL RDW 12.8 (12.0-15.0) % Plt Count 231 (130-450) 10^3/uL MPV 7.4 L (7.9-10.8) fL Neut # 2.3 (1.5-6.6) 10^3/uL Lymph # 2.1 (1.5-3.5) 10^3/uL [place] # 0.5 (0.0-1.0) 10^3/uL Eos # 0.5 (0.0-0.7) 10^3/uL Baso # 0.1 (0.0-0.1) 10^3/uL Absolute Nucleated RBC 0.00 x10^3/uL Nucleated RBC % 0.1 /100WBC ESR 6 (0-20) mm/Hr Sodium 140 (135-145) mmol/L Potassium 3.5 (3.5-5.0) mmol/L Chloride 109 (101-111) mmol/L Carbon Dioxide 25 (21-32) mmol/L Anion Gap 6.0 (6-13) BUN 9 (6-20) mg/dL Creatinine 0.5 (0.4-1.0) mg/dL Estimated GFR (MDRD) 132 (>89) Glucose 99 (70-100) mg/dL Calcium 8.4 L (8.5-10.3) mg/dL Magnesium 1.7 (1.7-2.8) mg/dL Total Bilirubin 0.6 (0.2-1.0) mg/dL AST 15 (10-42) IU/L ALT 10 (10-60) IU/L Alkaline Phosphatase 38 L (42-121) IU/L C-Reactive Protein < 1.0 (0-1.0) mg/dL Total Protein 5.2 L (6.7-8.2) g/dL Albumin 3.2 (3.2-5.5) g/dL Globulin 2.0 L (2.1-4.2) g/dL Albumin/Globulin Ratio 1.6 (1.0-2.2) Last Dose Date 05/31/17 Last Dose Time 0525 Vancomycin Trough 31.2 H* (5.0-15.0) ug/mL - Current Medications Current Medications: Current Medications Generic Name Dose Route Start Last Admin Trade Name Freq PRN Reason Stop Dose Admin Acetaminophen 650 mg 05/29/17 11:30 05/31/17 07:28 Tylenol PO 650 mg Q4HR PRN Administration Pain or Fever > 38C (100.4F) Famotidine 20 mg 05/29/17 09:00 05/31/17 09:01 Pepcid PO 20 mg DAILY SARAH Administration Fluconazole 100 mg 05/29/17 12:00 05/31/17 09:01 Diflucan PO 100 mg DAILY [facility] Administration Dextrose/Sodium Chloride 1,000 mls @ 100 mls/hr 05/29/17 01:00 05/31/17 05:24 D5ns IV 100 mls/hr .Q10H SARAH Administration Ampicillin Sodium/Sulbactam 100 mls @ 200 mls/hr 05/29/17 08:00 05/31/17 09: 44 Sodium 3 gm/ Sodium Chloride IV Infused Q8H [facility]AH Infusion Vancomycin HCl 1 gm/ Sodium 250 mls @ 167 mls/hr 05/29/17 18:00 05/31/17 06: 55 Chloride IV Infused Q12H SARAH Infusion Polyethylene Glycol 17 gm 05/29/17 09:00 05/31/17 09:07 Miralax PO Not Given DAILY [facility] Saccharomyces Boulardii 500 mg 05/29/17 17:00 05/31/17 09:00 Florastor PO 500 mg BIDWM SARAH Administration Sodium Chloride 10 ml 05/29/17 01:00 05/31/17 09:07 Normal Saline Flush 0.9% IVP Not Given 0100,0900,1700 [facility] Impression/Plan - Problem List Problem List: Continues to improve. Still with the original area inflamed preventing wrist flexion I recommend 1 more day in hospital on vancomycin and then probable D/C tomorrow on BactrimDS. Patient and concur Discussed with hsopitalist.
[2017-05-31] MEDS ORDERED: PHENAZOPYRIDINE 100 MG TABLET PO PRN (13:49)
--- NOTE | 2017-05-31 14:00 | PROVIDER PROGRESS NOTE ---
Subjective - Prog Note Date Prog Note Date: 05/31/17 Prog Note Time: 14:00 - Subjective Pt reports feeling: Improved Subjective: Patient complains of burning while urinating and mild urgency. She denies SOB, chest pain, N/V or a new cough. Current Medications - Current Medications Current Medications: Active Medications Acetaminophen (Tylenol) 650 mg PO Q4HR PRN PRN Reason: Pain or Fever > 38C (100.4F) Last Admin: 05/31/17 07:28 Dose: 650 mg Famotidine (Pepcid) 20 mg PO DAILY [facility] Last Admin: 05/31/17 09:01 Dose: 20 mg Fluconazole (Diflucan) 100 mg PO DAILY [facility] Last Admin: 05/31/17 09:01 Dose: 100 mg Dextrose/Sodium Chloride (D5ns) 1,000 mls @ 100 mls/hr IV .Q10H [facility] Last Admin: 05/31/17 05:24 Dose: 100 mls/hr Ampicillin Sodium/Sulbactam (Sodium 3 gm/ Sodium Chloride) 100 mls @ 200 mls/ hr IV Q8H [facility] Last Infusion: 05/31/17 09:44 Dose: Infused Vancomycin HCl 1 gm/ Sodium (Chloride) 250 mls @ 167 mls/hr IV Q12H [facility] Last Infusion: 05/31/17 06:55 Dose: Infused Ibuprofen (Motrin) 600 mg PO Q6HR PRN PRN Reason: Pain or Fever > 38C (100.4F) Ondansetron HCl (Zofran Inj) 4 mg IVP Q6HR PRN PRN Reason: Nausea / Vomiting Phenazopyridine HCl (Pyridium) 100 mg PO TID PRN PRN Reason: PAIN Polyethylene Glycol (Miralax) 17 gm PO DAILY [facility] Last Admin: 05/31/17 09:07 Dose: Not Given Saccharomyces Boulardii (Florastor) 500 mg PO BIDWM [facility] Last Admin: 05/31/17 09:00 Dose: 500 mg Sodium Chloride (Normal Saline Flush 0.9%) 10 ml IVP PRN PRN PRN Reason: NEEDED PER PROVIDER ORDERS Sodium Chloride (Normal Saline Flush 0.9%) 10 ml IVP 0100,0900,1700 [facility] Last Admin: 05/31/17 09:07 Dose: Not Given Temazepam (Restoril) 15 mg PO QPM PRN PRN Reason: Insomnia Calcium Carbonate 600 mg PO DAILY 05/29/17 Cholecalciferol (Vitamin D3) [Vitamin D3] 1,000 unit PO DAILY 05/29/17 Vitamin B Complex 1 tab PO DAILY 05/29/17 Objective - Vital Signs/Intake & Output Reviewed Vital Signs: Yes Vital Signs: Vital Signs x48h Temp Pulse Resp BP Pulse Ox 05/31/17 07:21 36.9 C 70 16 110/67 98 Intake & Output: Intake & Output 05/28/17 05/29/17 05/30/17 05/31/17 23:59 23:59 23:59 23:59 Intake Total 2670 4160 2190 Output Total 5 Balance 2670 4151 2190 - Objective General Appearance: positive: No acute distress, Alert Eyes Bilateral: positive: Normal inspection, PERRL ENT: positive: ENT inspection nml, Pharynx nml, No signs of dehydration Neck: positive: Nml inspection, Thyroid nml, No JVD Respiratory: positive: Chest non-tender, No respiratory distress, Breath sounds nml Cardiovascular: positive: Regular rate & rhythm, No murmur, No gallop Peripheral Pulses: 1+ Radial (R), 1+ Radial (L) Abdomen: positive: Non-tender, No organomegaly, Nml bowel sounds Back: positive: Nml inspection Skin: positive: No rash, Warm, Dry Extremities: positive: Non-tender, Full ROM, Nml appearance, No pedal edema Neurologic/Psychiatric: positive: Oriented x3, CN's nml (2-12), Motor nml, Sensation nml, Mood/affect nml Reflexes: Bicep (R): 3+, Bicep (L): 3+ - Lab Results Fish Bones: 05/31/17 06:06 05/31/17 06:06 Other Labs: Lab Results x24hrs 05/31/17 05/31/17 05/31/17 Range/Units 06:06 06:06 06:06 WBC 5.5 (4.8-10.8) x10^3/uL RBC 3.84 L (4.20-5.40) 10^6/uL Hgb 12.1 (12.0-16.0) g/dL Hct 35.9 L (37.0-47.0) % MCV 93.5 (81.0-99.0) fL MCH 31.4 H (27.0-31.0) pg MCHC 33.6 (32.0-36.0) g/dL RDW 12.8 (12.0-15.0) % Plt Count 231 (130-450) 10^3/uL MPV 7.4 L (7.9-10.8) fL Neut # 2.3 (1.5-6.6) 10^3/uL Lymph # 2.1 (1.5-3.5) 10^3/uL [place] # 0.5 (0.0-1.0) 10^3/uL Eos # 0.5 (0.0-0.7) 10^3/uL Baso # 0.1 (0.0-0.1) 10^3/uL Absolute Nucleated RBC 0.00 x10^3/uL Nucleated RBC % 0.1 /100WBC ESR 6 (0-20) mm/Hr Sodium 140 (135-145) mmol/L Potassium 3.5 (3.5-5.0) mmol/L Chloride 109 (101-111) mmol/L Carbon Dioxide 25 (21-32) mmol/L Anion Gap 6.0 (6-13) BUN 9 (6-20) mg/dL Creatinine 0.5 (0.4-1.0) mg/dL Estimated GFR (MDRD) 132 (>89) Glucose 99 (70-100) mg/dL Calcium 8.4 L (8.5-10.3) mg/dL Magnesium 1.7 (1.7-2.8) mg/dL Total Bilirubin 0.6 (0.2-1.0) mg/dL AST 15 (10-42) IU/L ALT 10 (10-60) IU/L Alkaline Phosphatase 38 L (42-121) IU/L C-Reactive Protein < 1.0 (0-1.0) mg/dL Total Protein 5.2 L (6.7-8.2) g/dL Albumin 3.2 (3.2-5.5) g/dL Globulin 2.0 L (2.1-4.2) g/dL Albumin/Globulin Ratio 1.6 (1.0-2.2) Last Dose Date 05/31/17 Last Dose Time 0525 Vancomycin Trough 31.2 H* (5.0-15.0) ug/mL Assessment/Plan - Problem List (1) Dysuria Impression: Patient complains of burning while urinating and urgency. She states that there is no hematuria. She requests pyridium. Plan: Prescribe pyridium PRN and obtain a clean catch UA. (2) Cellulitis of hand without finger or thumb, right Impression: Patient has a cat named Shannan who on 05/26/17 accidentally bit her on her right wrist. She has been to the ED 4 times and a wound culture was obtained on 05/28/17, which remains NGTD. The patient has a cat that everyone calls "jennfier" but has a legal name of Shannan who unfortunately bit Toshia Prasad on the right wrist. 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 Continue antibiotics vanco and ampicillian. (3) Tenosynovitis of right wrist Impression: The patient exhibits moderate discomfort while palpating and moving the right second and fifth fingers and no swelling is appreciated. There is no evidence of tendon rupture, compartment syndrome or necrosis. The patient admits to using her hand more and her wound is improving. Plan: Continue to monitor, and if this becomes worse, imaging may be warranted. Continue antibiotics vanco and ampicillian. (4) Vaginal candidiasis Impression: Patient complains of itching in her mami area, and refused an exam. She states that she has a history of "yeast infections" and this is similar. Plan: Probiotic was added and diflucan.
[2017-05-31 14:16] LABS: BILIRUBIN,URINE NEGATIVE (NEGATIVE); CLARITY,URINE CLEAR (CLEAR); GLUCOSE, URINE (UA) NEGATIVE (NEGATIVE); KETONES,URINE (UA) NEGATIVE (NEGATIVE); LEUKOCYTE ESTERASE, URINE NEGATIVE (NEGATIVE); NITRITE,URINE NEGATIVE (NEGATIVE); OCCULT BLOOD,URINE NEGATIVE (NEGATIVE); PROTEIN,URINE NEGATIVE (NEGATIVE); UROBILINOGEN,URINE 0.2 (NORMAL) E.U./dL (NORMAL)
[2017-05-31 17:46] LABS: VANCOMYCIN,TROUGH 10.5 ug/mL (5.0-15.0)
[2017-06-01] MEDS: AMPICILLIN/SULBACTAM 3 GM in SODIUM CHLORIDE 0.9% MINIBAG 100 ML IV SCH ×2 (01:23→08:27)
[2017-06-01] MEDS: SODIUM CHLORIDE FLUSH 0.9% 10 ML SYRINGE IVP SCH ×2 (01:29→08:29)
[2017-06-01 06:06] LABS: BASOPHILS # (AUTO) 0.1 10^3/uL (0.0-0.1); BASOPHILS % (AUTO) 1.1 %; EOSINOPHILS # (AUTO) 0.6 10^3/uL (0.0-0.7); EOSINOPHILS % (AUTO) 7.9 %; HGB - HEMOGLOBIN 12.3 g/dL (12.0-16.0); LYMPHOCYTES # (AUTO) 2.2 10^3/uL (1.5-3.5); LYMPHOCYTES % (AUTO) 30.2 %; MEAN CORPUSCULAR HEMOGLOBIN 31.4 pg (27.0-31.0); MEAN CORPUSCULAR HGB CONC 33.9 g/dL (32.0-36.0); MEAN CORPUSCULAR VOLUME 92.8 fL (81.0-99.0); MEAN PLATELET VOLUME 7.4 fL (7.9-10.8); MONOCYTES # (AUTO) 0.5 10^3/uL (0.0-1.0); MONOCYTES % (AUTO) 6.9 %; NEUTROPHILS # (AUTO) 3.9 10^3/uL (1.5-6.6); NEUTROPHILS % (AUTO) 53.9 %; PLT - PLATELET COUNT 246 10^3/uL (130-450); RED BLOOD COUNT 3.92 10^6/uL (4.20-5.40); RED CELL DISTRIBUTION WIDTH 12.4 % (12.0-15.0); WHITE BLOOD COUNT 7.2 x10^3/uL (4.8-10.8)
[2017-06-01 06:22] LABS: ALBUMIN 3.3 g/dL (3.2-5.5); ALBUMIN/GLOBULIN RATIO 1.7 (1.0-2.2); ALKALINE PHOSPHATASE 35 IU/L (42-121); ALT ALANINE AMINOTRANSFERASE 11 IU/L (10-60); AST ASPARTATE AMINOTRANSFERASE 16 IU/L (10-42); BILIRUBIN,TOTAL 0.4 mg/dL (0.2-1.0); BUN - BLOOD UREA NITROGEN 10 mg/dL (6-20); CALCIUM 8.5 mg/dL (8.5-10.3); CARBON DIOXIDE - CO2 24 mmol/L (21-32); CHLORIDE 107 mmol/L (101-111); CREATININE 0.6 mg/dL (0.4-1.0); GFR - MDRD 107 (>89); GLUCOSE 99 mg/dL (70-100); MAGNESIUM 1.9 mg/dL (1.7-2.8); SODIUM 139 mmol/L (135-145); TOTAL PROTEIN 5.3 g/dL (6.7-8.2)
[2017-06-01] MEDS: VANCOMYCIN INJ 1 GM in SODIUM CHLORIDE 0.9% 250 ML IV SCH (06:25)
[2017-06-01 06:30] LABS: CRP - C-REACTIVE PROTEIN < 1.0 mg/dL (0-1.0)
[2017-06-01 08:10] VITALS: BP 106/63
[2017-06-01] MEDS: DEXTROSE 5%-0.9% NACL 1,000 ML IV SCH ×2 (08:11→10:39)
[2017-06-01] MEDS: SACCHAROMYCES BOULARDII 250 MG CAPSULE PO SCH (08:26)
[2017-06-01] MEDS: FAMOTIDINE 20 MG TABLET PO SCH (08:26)
[2017-06-01] MEDS: POLYETHYLENE GLYCOL 3350 17 GM PACKET PO SCH (08:26)
[2017-06-01] MEDS: FLUCONAZOLE 100 MG TABLET PO SCH (08:26)
--- NOTE | 2017-06-01 10:20 | DISCHARGE SUMMARY ---
Discharge Summary Admit Date: 05/28/17 Discharge Date: 06/01/17 Discharging Provider: CHUCKY Marinelli Primary Care Provider: Romy Martinez Code Status: Attempt Resuscitation Condition at Discharge: Good Discharge Disposition: 01 Home, Self Care - DIAGNOSES Admission Diagnoses: Cellulitis of hand without finger or thumb, right (L03.113) Open bite of right wrist, initial encounter (S61.221D) Open bite of unspecified wrist, initial encounter (S61.557J) Discharge Diagnoses with Status of Each Condition: Cellulitis of hand without finger or thumb, right (L03.113) improved, care to continue with PO meds. Vaginal candidiasis (B37.3) new on this admission, thought to be from prolonged use of IV antibiotics. Care to continue. Tenosynovitis of right wrist (M65.9) stable. Dysuria (R30.0) improved, medications at pharmacy for symptom management. UA negative. - HPI History of Present Illness: Toshia Prasad is a 46 year old white female with a past medical history of vertigo, hysterectomy and bladder surgery. She had been to the ED at least 4 times before this time when she will now be admitted for further treatment of her right wrist cellulitis. She states that on 05/26/17 her cat, Shannan who became frightened and bit her in the hand. She states that this is not his normal behavior and has never been hurt by any animal in the past. She was given a tetanus shot when she first presented to the ED and sent home with antibiotics. She developed a fever at home as high as 39 C. She will be admitted for further IV antibiotic treatment and Dr. Neal, Orthopedic surgery , was contacted to follow in the event of an I & D. - HOSPITAL COURSE Hospital Course: The following diagnoses were prevalent during this hospital stay: (1) Dysuria- Patient complains of burning while urinating and urgency. She states that there is no hematuria. She requests pyridium and this was prescribed to continue at home as needed. A clean catch UA was obtained and preliminary results are negative for UTI. (2) Cellulitis of hand without finger or thumb, right- Patient has a cat named Shannan who on 05/26/17 accidentally bit her on her right wrist. She has been to the ED 4 times and a wound culture was obtained on 05/28/17, which remains NGTD. The patient has a cat that everyone calls "jennifer" but has a legal name of Shannan who unfortunately bit Toshia Prasad on the right wrist. Patient was counseled on ways to prevent future events. She was continued on IV antibiotics , vanco and ampicillian that were changed to clindamycin and Cipro PO for an additional 5 days at home. (3) Tenosynovitis of right wrist- The patient exhibited moderate discomfort while palpating and moving the right second and fifth fingers and no swelling or erythema is appreciated. There is no evidence of tendon rupture, compartment syndrome or necrosis. The patient admits to using her hand more and her wound is improving. Patient was continuously monitored and this did maging may be warranted. Continue antibiotics vanco and ampicillian. (4) Vaginal candidiasis- Patient complains of itching in her mami area, and refused an exam. She states that she has a history of "yeast infections" and this is similar. A Probiotic and Diflucan PO was added based on symptoms and both were prescribed at the time of discharge. Disposition: Dr. Neal, ortho surgery was also following and we agree that this patient has met her inpatient requirements for IV treatment. Patient was in stable condition at the time of discharge. She was transported via private car and . - ALLERGIES Allergies/Adverse Reactions: Allergies Allergy/AdvReac Type Severity Reaction Status Date / Time meperidine HCl * AdvReac Severe Anxiety Verified 05/28/17 22:35 [From Demerol] propoxyphene napsylate * AdvReac Severe Anxiety Verified 05/28/17 22:35 [From Darvocet-N 100] morphine AdvReac Intermediate Headache Verified 05/29/17 03:09 lactose AdvReac Cramps Verified 05/29/17 14:19 - MEDICATIONS Home Medications: Ambulatory Orders Medication Instructions Recorded Confirmed Calcium Carbonate 600 mg PO DAILY 05/29/17 05/29/17 Cholecalciferol (Vitamin D3) 1,000 unit PO DAILY 05/29/17 05/29/17 [Vitamin D3] Vitamin B Complex 1 tab PO DAILY 05/29/17 05/29/17 Ciprofloxacin HCl [Cipro] 500 mg PO BID 5 Days #10 tablet 06/01/17 Clindamycin HCl [Clindamycin 300MG 600 mg PO BID 5 Days #20 capsule 06/01/17 CAP] Fluconazole [Diflucan] 100 mg PO DAILY #5 tablet 06/01/17 Phenazopyridine [Pyridium] 100 mg PO TID PRN #30 tablet 06/01/17 Saccharomyces Boulardii [Florastor] 250 mg PO BID 10 Days #20 capsule 06/01/17 - PHYSICAL EXAM AT DISCHARGE General Appearance: positive: No acute distress, Alert Eyes Bilateral: positive: Normal inspection, PERRL ENT: positive: ENT inspection nml, Pharynx nml, No signs of dehydration Neck: positive: Nml inspection, Thyroid nml, No JVD Respiratory: positive: Chest non-tender, No respiratory distress, Breath sounds nml Cardiovascular: positive: Regular rate & rhythm, No murmur, No gallop Peripheral Pulses: positive: 2+ Abdomen: positive: Non-tender, No organomegaly, Nml bowel sounds Back: positive: Nml inspection Skin: positive: No rash, Warm, Dry Extremities: positive: Non-tender, Full ROM, Nml appearance, No pedal edema Neurologic/Psychiatric: positive: Oriented x3, CN's nml (2-12), Motor nml, Sensation nml, Mood/affect nml Reflexes: Bicep (R): 4+, Bicep (L): 4+ - LABS Result Diagrams: 06/01/17 05:30 06/01/17 05:30 - FOLLOW UP Follow Up: Disposition: 01 Home, Self Care Condition: Good Prescriptions: Ciprofloxacin HCl [Cipro] 500 mg PO BID 5 Days #10 tablet Clindamycin HCl [Clindamycin 300MG CAP] 600 mg PO BID 5 Days #20 capsule Fluconazole [Diflucan] 100 mg PO DAILY #5 tablet Phenazopyridine [Pyridium] 100 mg PO TID PRN #30 tablet PRN Reason: Pain Saccharomyces Boulardii [Florastor] 250 mg PO BID 10 Days #20 capsule Diet: Regular Activity Restrictions: No Restrictions Shower Restrictions: No Driving Restrictions: No Weight Bearing: Full Weight Additional Instructions or Follow Up instructions: You were admitted for further treatment of your right wrist cellulitis. You should continue on oral antibiotics for another 5 days. Please see your PCP within one week. - TIME SPENT Time Spent in Discharge (Minutes): 40
== END 2017-06-01 10:45 | disposition home or self-care (01) | DRG 603 ==
LOC: ED 22:26 → MS2 05-29 00:40
PROVIDERS: ADMIT Internal Medicine; ATTEND Nurse Practitioner
DX: L03.113 Cellulitis of right upper limb (principal); S61.451S Open bite of right hand, sequela; M65.9 Synovitis and tenosynovitis, unspecified; W55.01XS Bitten by cat, sequela; B37.3 Candidiasis of vulva and vagina; R30.0 Dysuria; Z79.2 Long term (current) use of antibiotics; Z86.718 Personal history of other venous thrombosis and embolism
CPT/HCPCS: 36415; 80048; 80053; 81001; 81003; 82565; 83735; 85025; 85651; 86140; 87070; 87086; 87205; 96365; 99283; 99285

== ENCOUNTER 2018-12-17 19:20 | Emergency (ER) | payer OTHER ==
[2018-12-17 19:29] VITALS: BP 115/73
--- NOTE | 2018-12-17 20:05 | ED Physician Documentation ---
PD HPI OPHTHO - Stated complaint Stated Complaint: LT EYE PX - Chief complaint Chief Complaint: Heent - History obtained from History obtained from: Patient - History of Present Illness Timing - onset: How many hours ago (6), Today Timing - duration: Hours (6) Timing - details: Abrupt onset, Still present Location: Left Quality / character: Aching, Other (noted onset pain in eye while at rest. No injury. [place] discomfort with eye movement. Took contact lens out. Noted some redness of the eyeball. FLushed out eye with contact solution. No noted FB. Has noted persistent eye pain and an expanding area of bloody redness.) Associated symptoms: Redness, FB sensation. No: Photophobia, Loss of vision Contributing factors: Wears contacts. No: Recent URI, FB Similar symptoms before: Has not had sx before Recently seen: Not recently seen Review of Systems Constitutional: denies: Fever, Chills Eyes: reports: Irritation. 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 12/17/18 Ophthalmic Ointment] - Allergies Allergies/Adverse Reactions: Allergies Allergy/AdvReac Type Severity Reaction Status Date / Time meperidine HCl * AdvReac Severe Anxiety Verified 12/17/18 19:33 [From Demerol] propoxyphene napsylate * AdvReac Severe Anxiety Verified 12/17/18 19:33 [From Darvocet-N 100] morphine AdvReac Intermediate Headache Verified 12/17/18 19:33 lactose AdvReac Cramps Verified 12/17/18 19:33 - Social History Does the pt smoke?: No Smoking Status: Never smoker Does the pt drink ETOH?: No Does the pt have substance abuse?: No - Immunizations Immunizations are current?: Yes - POLST Patient has POLST: No PD ED PE NORMAL - Vitals Vital signs reviewed: Yes - General General: Alert and oriented X 3, No acute distress, Well developed/nourished - HEENT HEENT: PERRL, EOMI, Ears normal, Moist mucous membranes, Pharynx benign - Neck Neck: Supple, no meningeal sign, No adenopathy PD ED PE EXPANDED - Eyes Eyes: PERRL, EOMI, Corneal abrasion (left upper eye with associated subconjunctival hemorrhage localized. ), Fluorescein uptake, Anterior chambers clear, Normal fundi. No: Eyelid injury, Eyelid swelling, Exudate, Corneal FB, Corneal ulcer Results - Vitals Vitals: Vital Signs - 24 hr 12/17/18 19:25 Temperature 37.0 C Heart Rate 75 Respiratory 16 Rate Blood Pressure 115/73 O2 Saturation 100 Oxygen O2 Source Room air PD MEDICAL DECISION MAKING - ED course Complexity details: considered differential, d/w patient Departure - Departure Disposition: 01 Home, Self Care Clinical Impression: Corneal abrasion due to contact lens Qualifiers: Laterality: left Qualified Code(s): H18.822 - Corneal disorder due to contact lens, left eye Subconjunctival hemorrhage Qualifiers: Laterality: left Qualified Code(s): H11.32 - Conjunctival hemorrhage, left eye Condition: Stable Record reviewed to determine appropriate education?: Yes Instructions: ED Corneal Injury Contact Lens Prescriptions: Erythromycin Base [Erythromycin Ophthalmic Ointment] 1 applic OP QID #3.5 oint...g. Comments: You can use some eye ointment or lubricating eye drops several times a day to help coat the surface of the eye. Antibiotic ointment can be used to reduce the chance of infection. This should improve steadily over the next day or 2 in the irritation part be gone within a couple of days. Recheck if not better by Thursday. The broken blood vessel in the blood there will resorb slowly but may take even up to a week to fully disappear. Discharge Date/Time: 12/17/18 20:33
[2018-12-17] MEDS ORDERED: ERYTHROMYCIN OPHTH OINT 1 GM TUBE LEFTEYE STA (20:26)
== END 2018-12-17 20:33 | disposition home or self-care (01) ==
LOC: ED 19:20
DX: H18.822 Corneal disorder due to contact lens, left eye (principal); H11.32 Conjunctival hemorrhage, left eye
CPT/HCPCS: 99283; 99284; J3490

== ENCOUNTER 2020-01-23 09:13 | Outpatient (CLI) | payer OTHER ==
[2020-01-23] MEDS ORDERED: ALBUTEROL 1 PUFF INH STA (11:18)
== END 2020-01-23 09:14 | disposition home or self-care (01) ==
LOC: RT 09:13
PROVIDERS: ATTEND Family Medicine
DX: R06.00 Dyspnea, unspecified (principal)
CPT/HCPCS: 94060; 94727; 94729

== ENCOUNTER 2020-12-04 14:33 | Emergency (ER) | payer OTHER ==
--- NOTE | 2020-12-04 15:38 | XRAY Report ---
PROCEDURE: Chest 1 View X-Ray INDICATIONS: shortness of breath TECHNIQUE: One view of the chest was acquired. COMPARISON: None. FINDINGS: Surgical changes and devices: None. Lungs and pleura: No pleural effusions or pneumothorax. Lungs are clear. Mediastinum: Mediastinal contours appear normal. Heart size is normal. Bones and chest wall: No suspicious bony lesions. Overlying soft tissues appear unremarkable. IMPRESSION: No acute cardiopulmonary pathology. Reviewed by: Dilshad Newman MD on 12/04/2020 3:36 PM PDT Approved by: Dilshad Newman MD on 12/04/2020 3:36 PM PDT Station ID: [id number]
[2020-12-04 15:51] LABS: BASOPHILS # (AUTO) 0.1 10^3/uL (0.0-0.1); BASOPHILS % (AUTO) 1.2 %; EOSINOPHILS # (AUTO) 0.4 10^3/uL (0.0-0.7); EOSINOPHILS % (AUTO) 4.7 %; HCT - HEMATOCRIT 39.4 % (37.0-47.0); HGB - HEMOGLOBIN 13.4 g/dL (12.0-16.0); LYMPHOCYTES # (AUTO) 2.1 10^3/uL (1.5-3.5); LYMPHOCYTES % (AUTO) 25.1 %; MEAN CORPUSCULAR HEMOGLOBIN 32.4 pg (27.0-31.0); MEAN CORPUSCULAR VOLUME 95.4 fL (81.0-99.0); MEAN PLATELET VOLUME 9.5 fL (7.9-10.8); MONOCYTES # (AUTO) 0.6 10^3/uL (0.0-1.0); MONOCYTES % (AUTO) 7.1 %; NEUTROPHILS % (AUTO) 61.8 %; PLT - PLATELET COUNT 290 10^3/uL (130-450); RED BLOOD COUNT 4.13 10^6/uL (4.20-5.40); RED CELL DISTRIBUTION WIDTH 12.3 % (12.0-15.0); WHITE BLOOD COUNT 8.2 x10^3/uL (4.8-10.8)
[2020-12-04 15:58] LABS: CALCIUM 9.2 mg/dL (8.5-10.3); CREATININE 0.6 mg/dL (0.4-1.0); POTASSIUM 3.6 mmol/L (3.5-5.0)
--- NOTE | 2020-12-04 16:08 | ED Physician Documentation ---
PD HPI DYSPNEA - Stated complaint Stated Complaint: SOA - Chief complaint Chief Complaint: Resp - History obtained from History obtained from: Patient - History of Present Illness Timing - details: Gradual onset Improved by: Other (Nothing) Worsened by: Other (Nothing) Associated symptoms: No: Fever, Cough, Hemoptysis, Wheezing, Chest pain / discomfort, Palpitations, Diaphoresis, Bilateral edema, Unilateral edema, Anxiety (Pt denies stress/anxiety) Similar symptoms before: Work up / diagnostics (prior negative workup for same sx including negative chest xray and CT) Recently seen: Not recently seen - Additional information Additional information: 50 yo F presented w/ sensation that she could not get a deep breath for several days. She denies coughing or wheezing or chest pain but feels like she is not getting a full breath when she breathes. She has had similar sx in the past and apparently had a full workup including chest xray and chest CT which were negative, but she was under the impression she had pneumonia and states her sx today feel "the same as when I had pneumonia," though she has no cough, fever, or chest pain. She states she does not have anxiety or stress, though has had it in the past, and was given a prescription for Wellbutrin in the past but states she never started it. No known sick contacts. Review of Systems Constitutional: reports: Reviewed and negative Eyes: reports: Reviewed and negative Ears: reports: Reviewed and negative Nose: reports: Reviewed and negative Throat: reports: Reviewed and negative Cardiac: reports: Reviewed and negative Respiratory: reports: Dyspnea, Other (Pt feels like she is not getting deep breaths). 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 : Chronic bladder infection HEENT: None Psych: Anxiety Musculoskeletal: None Derm: None - Past Surgical History 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, Other - Present Medications Home Medications: Ambulatory Orders Medication Instructions Recorded Confirmed Calcium Carbonate [Calcium] 600 mg PO DAILY 12/04/20 12/04/20 Vitamin B Complex Vit C No.3 [B 1 each PO DAILY 12/04/20 12/04/20 Complex with Vitamin C] - Allergies Allergies/Adverse Reactions: Allergies Allergy/AdvReac Type Severity Reaction Status Date / Time meperidine HCl * AdvReac Severe Anxiety Verified 12/04/20 14:39 [From Demerol] propoxyphene napsylate * AdvReac Severe Anxiety Verified 12/04/20 14:39 [From Darvocet-N 100] morphine AdvReac Intermediate Headache Verified 12/04/20 14:39 lactose AdvReac Cramps Verified 12/04/20 14:39 - Social History Does the pt smoke?: No Smoking Status: Never smoker Does the pt drink ETOH?: Yes Does the pt have substance abuse?: No - Immunizations Immunizations are current?: Yes - POLST Patient has POLST: No PD ED PE NORMAL - Vitals Vital signs reviewed: Yes - General General: Alert and oriented X 3, No acute distress, Well developed/nourished - HEENT HEENT: Atraumatic, PERRL, Moist mucous membranes, Pharynx benign - Neck Neck: Supple, no meningeal sign, No bony TTP, No adenopathy, No JVD - Cardiac Cardiac: RRR, No murmur, No gallop, No rub - Respiratory Respiratory: No respiratory distress, Clear bilaterally, Other (non labored, talking in full sentences) - Abdomen Abdomen: Normal bowel sounds, Soft, Non tender, Non distended - Back Back: No CVA TTP - Derm Derm: Normal color, Warm and dry, No rash - Extremities Extremities: No deformity, No tenderness to palpate, Normal ROM s pain, No edema, No calf tenderness / cord - Neuro Neuro: Alert and oriented X 3, No motor deficit, No sensory deficit, Normal speech Eye Opening: Spontaneous Motor: Obeys Commands Verbal: Oriented GCS Score: 15 - Psych Psych: Normal mood, Normal affect Results - Vitals Vitals: Vital Signs - 24 hr 12/04/20 12/04/20 12/04/20 14:39 15:42 16:00 Temperature 37 C Heart Rate 82 72 68 Respiratory 20 14 10 L Rate Blood Pressure 120/65 117/68 114/64 O2 Saturation 99 100 100 12/04/20 16:42 Temperature Heart Rate 68 Respiratory 14 Rate Blood Pressure 109/62 O2 Saturation 100 Oxygen O2 Source Room air - EKG (time done) No standard instances Rhythm: NSR [place]: Normal Intervals: Normal NM QRS: Normal Ischemia: Normal ST segments Computer interpretation: Agree with computer - Labs Labs: Laboratory Tests 12/04/20 12/04/20 12/04/20 15:42 15:42 15:42 WBC 8.2 RBC 4.13 L Hgb 13.4 Hct 39.4 MCV 95.4 MCH 32.4 H MCHC 34.0 RDW 12.3 Plt Count 290 MPV 9.5 Neut # (Auto) 5.0 Lymph # (Auto) 2.1 [place] # (Auto) 0.6 Eos # (Auto) 0.4 Baso # (Auto) 0.1 Absolute Nucleated RBC 0.00 Nucleated RBC % 0.0 Sodium 142 Potassium 3.6 Chloride 105 Carbon Dioxide 27 Anion Gap 10.0 BUN 13 Creatinine 0.6 Estimated GFR (MDRD) 105 Glucose 97 Calcium 9.2 Troponin I High Sens < 2.3 L PD MEDICAL DECISION MAKING - ED course Complexity details: reviewed old records, reviewed results, re-evaluated patient, considered differential, d/w patient ED course: Pt presented w/ sensation of not being able to take deep breath. Differentials included anxiety, and lower suspicion for pna, ptx, acs, pe. She had reassuring vital signs w/o hypoxia or labored breathing at any point during ER stay. She had no chest pain and no fever. Labs including troponin, EKG, and chest xray all reassuring. I have low suspicion for PE as pts Wells' criteria is 0. I suspect this is 2/2 to anxiety and discussed supportive measures. I reviewed return precautions as well. Departure - Departure Disposition: 01 Home, Self Care Clinical Impression: Dyspnea Condition: Good Instructions: ED Dyspnea Shortness of Breath Comments: Please follow up with your primary doctor if your symptoms persist beyond 1 week or return to the ER if you have worsening symptoms including fever, cough, or chest pain. Discharge Date/Time: 12/04/20 16:44
[2020-12-04 16:43] VITALS: BP 109/62
== END 2020-12-04 16:44 | disposition home or self-care (01) ==
LOC: ED 14:33
DX: R06.09 Other forms of dyspnea (principal)
CPT/HCPCS: 36415; 80048; 84484; 85025; 93005; 99283; 99284

== ENCOUNTER 2020-12-25 07:54 | Day surgery (SDC) | payer OTHER ==
[2020-12-25 08:19] LABS: HCG UR QUAL NEGATIVE
[2020-12-25] MEDS ORDERED: LACTATED RINGERS 1,000 ML IV ONE ×2 (08:46→09:44)
[2020-12-25] MEDS ORDERED: SCOPOLAMINE PATCH TOP ONE (08:47)
--- NOTE | 2020-12-25 08:59 | ANESTHESIA ---
Pre-Anesthesia VS, & Labs - Diagnosis screening - Procedure colonoscopy Vital Signs: Temp Pulse Resp BP Pulse Ox 36.3 C L 67 16 115/71 100 12/25/20 08:13 12/25/20 08:13 12/25/20 08:13 12/25/20 08:13 12/25/20 08:13 Height: 5 ft 5 in Weight (kg): 59.8 kg Body Mass Index: 21.9 BMI Classification: Healthy weight - NPO >8 hours - Is Patient ?: No - Lab Results Lab results reviewed: Yes Home Medications and Allergies Home Medications: Ambulatory Orders Cimetidine 400 mg PO BID 12/24/20 [place]-3/Dha/Epa/Fish Oil [Fish Oil 1,000 mg Softgel] 1 tab ORAL DAILY 12/24/20 Calcium Carbonate [Calcium] 600 mg PO DAILY 12/04/20 Vitamin B Complex Vit C No.3 [B Complex with Vitamin C] 1 each PO DAILY 12/04/20 Cimetidine 400 mg PO BID 12/24/20 [place]-3/Dha/Epa/Fish Oil [Fish Oil 1,000 mg Softgel] 1 tab ORAL DAILY 12/24/20 Allergies/Adverse Reactions: Allergies Allergy/AdvReac Type Severity Reaction Status Date / Time meperidine HCl * AdvReac Severe Anxiety Verified 12/04/20 14:39 [From Demerol] propoxyphene napsylate * AdvReac Severe Anxiety Verified 12/04/20 14:39 [From Darvocet-N 100] morphine AdvReac Intermediate Headache Verified 12/04/20 14:39 lactose AdvReac Cramps Verified 12/04/20 14:39 Anes History & Medical History - Anesthetic History Anesthesia Complications: reports: Post-Operative Nausea/Vomiting Family history of Anesthesia Complications: Denies Family history of Malignant Hyperthermia: Denies - Medical History Cardiovascular: reports: Deep vein thrombosis Pulmonary: reports: None Gastrointestinal: reports: GERD, Hiatal hernia Urinary: reports: Incontinence, Chronic bladder infection Neuro: reports: None Musculoskeletal: reports: None Endocrine/Autoimmune: reports: None Blood Disorders: reports: None Skin: reports: None Smoking Status: Never smoker - Surgical History General: reports: EGD Urologic: reports: Bladder surgery Gynecologic: reports: Tubal ligation, Hysterectomy, Other Exam General: Alert, Oriented x3, Cooperative, No acute distress Dental: WNL, Loose/Frag Mouth and Teeth Image: 1 - loose Mouth Openin Fingerbreadth Neck Mobility: Normal Mallampati classification: II Respiratory: Lungs clear, Normal breath sounds, No respiratory distress Cardiovascular: Regular rate, Normal S1, Normal S2, No murmurs Plan Anesthesia Type: General, Total IV Consent for Procedure(s) Verified and Reviewed: Yes Code Status: Attempt Resuscitation ASA classification: 2-Mild systemic disease Is this case an emergency?: No
[2020-12-25] MEDS ORDERED: MIDAZOLAM 2 MG/2 ML VIAL ONE (09:12)
[2020-12-25] MEDS ORDERED: fentaNYL 100 MCG/2 ML VIAL ONE (09:12)
[2020-12-25] MEDS ORDERED: PROPOFOL 500 MG/50 ML 500 MG/50 ML VIAL ONE (09:13)
[2020-12-25 10:02] VITALS: BP 113/68
--- NOTE | 2020-12-25 12:09 | ANESTHESIA POST OP EVALUATION ---
Anesthesia Post Eval - Post Anesthesia Eval Vitals: Last Vital Signs Temp 36.5 C 12/25/20 10:00 Pulse 72 12/25/20 10:00 Resp 16 12/25/20 10:00 BP 113/68 12/25/20 10:00 Pulse Ox 100 12/25/20 10:00 CV Function Including HR & BP: Stable Pain Control: Satisfactory Nausea & Vomiting: Negative Mental Status: Baseline Respiratory Status: Airway Patent Hydration Status: Satisfactory Anesthesia Complications: None
== END 2020-12-25 07:55 | disposition home or self-care (01) ==
LOC: SDS 07:54
PROVIDERS: ATTEND Surgery
PROC: 0DBM8ZZ Excision of Descending Colon, Via Natural or Artificial Opening Endoscopic (ICD-10-PCS; principal; 2020-12-25 09:15)
DX: Z12.11 Encounter for screening for malignant neoplasm of colon (principal); D12.4 Benign neoplasm of descending colon; K57.30 Diverticulosis of large intestine without perforation or abscess without bleeding; K64.8 Other hemorrhoids; K64.4 Residual hemorrhoidal skin tags; K21.9 Gastro-esophageal reflux disease without esophagitis; K44.9 Diaphragmatic hernia without obstruction or gangrene; N30.20 Other chronic cystitis without hematuria; F43.10 Post-traumatic stress disorder, unspecified; Z86.718 Personal history of other venous thrombosis and embolism; Z79.899 Other long term (current) drug therapy
CPT/HCPCS: 45380; 81025; J3490; J7120

== ENCOUNTER 2021-03-06 10:15 | Outpatient (CLI) | payer OTHER ==
--- NOTE | 2021-03-07 10:31 | Mammography Report ---
BILATERAL DIGITAL DIAGNOSTIC MAMMOGRAM 3D/2D: 03/06/2021 CLINICAL: Diffuse right breast pain. Comparison is made to exams dated: 06/25/2018 mammogram, 01/18/2015 mammogram, 01/27/2013 mammogram, a nd 01/22/2011 mammogram - [facility]. There are scattered fibroglandular elements in b oth breasts. No significant masses, calcifications, or other findings are seen in either breast. IMPRESSION: NEGATIVE There is no mammographic evidence of malignancy. A 1 year screening mammogram is recommended. This exam was interpreted at Station ID: [id number]. NOTE: For mammograms, a report in lay terms will be sent to the patient. Approximately 15% of breast malignancies will not be visualized mammographically. In the management of a palpable breast mass, a negative mammogram must not discourage biopsy of a clinically suspicious lesion. Electronically Signed By: Aren Wilson M.D., [email or web address]:03/06/2021 12:15:30 ACR BI-RADS Category 1: Negative 3341F PARENCHYMAL PATTERN: (A) - The breast(s) demonstrate(s) scattered fibroglandular densities. BI-RADS CATEGORY: (1) - 1 RECOMMENDATION: (ANNUAL) - Recommend routine annual screening mammography. [id number] 1 year screening LATERALITY: (B)
== END 2021-03-06 10:16 | disposition home or self-care (01) ==
LOC: DI 10:15
PROVIDERS: ATTEND Family Medicine
DX: N64.4 Mastodynia (principal)

== ENCOUNTER 2021-06-18 10:07 | Outpatient (CLI) | payer OTHER ==
--- NOTE | 2021-06-18 10:35 | XRAY Report ---
PROCEDURE: Foot 3 View LT INDICATIONS: LT FOOT PAIN TECHNIQUE: 3 views of the foot were acquired. COMPARISON: None FINDINGS: Bones: No fractures or dislocations. No suspicious bony lesions. Soft tissues: No tibiotalar joint effusion. Achilles tendon appears normal. IMPRESSION: No acute fracture. No osseous lesion. If symptoms and/or clinical suspicion for pathology continue, f urther assessment with repeat plain films, or advanced imaging (e.g., CT, MRI, or bone scan) is recom mended for further assessment. Reviewed by: Elver Jordan MD on 06/18/2021 10:34 AM PDT Approved by: Elver Jordan MD on 06/18/2021 10:34 AM PDT Station ID: [id number]
== END 2021-06-18 10:08 | disposition home or self-care (01) ==
LOC: DI 10:07
PROVIDERS: ATTEND Podiatrist
DX: M79.672 Pain in left foot (principal)

== ENCOUNTER 2021-07-22 09:44 | Outpatient (CLI) | payer OTHER ==
--- NOTE | 2021-07-22 16:55 | MRI Report ---
PROCEDURE: Foot LT W/O INDICATIONS: LEFT FOOT INJURY TECHNIQUE: Noncontrast sagittal T1 spin echo and T2 fast spin echo with fat saturation, long-axis T1 spin echo a nd T2 fast spin echo with fat saturation, short-axis proton density fast spin echo and T2 fast spin e cho with fat saturation through the forefoot. COMPARISON: None. FINDINGS: Image quality: Excellent. Bones and joints: No bone marrow contusions or metatarsal stress fractures. The sesamoid bones appe ar in expected positions, without internal edema. Mild first metatarsophalangeal joint degeneration. No intraosseous lesions. Bipartite medial hallux sesamoid. Mildly prominent effusions about the fir st and second metatarsal head. Soft tissues: The visualized plantar foot muscles demonstrate normal signal and bulk. Visualized fl exor and extensor tendons appear intact, without tenosynovitis. No soft tissue ganglion cysts or bur joe fluid collections. Sagittal images demonstrate no evidence for plantar plate tears. IMPRESSION: 1. Mildly prominent effusions about the first and second metatarsal heads, which may reflect bursitis . Reviewed by: Indra Katz MD on 07/22/2021 4:54 PM PDT Approved by: Indra Katz MD on 07/22/2021 4:54 PM PDT Station ID: [id number]
== END 2021-07-22 09:45 | disposition home or self-care (01) ==
LOC: DI 09:44
PROVIDERS: ATTEND Podiatrist
DX: S96.902A Unspecified injury of unspecified muscle and tendon at ankle and foot level, left foot, initial encounter (principal); M25.475 Effusion, left foot

== ENCOUNTER 2023-06-20 10:29 | Observation (INO) | payer OTHER ==
[2023-06-20 11:10] LABS: BILIRUBIN,URINE NEGATIVE (NEGATIVE); GLUCOSE, URINE (UA) NEGATIVE (NEGATIVE); KETONES,URINE (UA) NEGATIVE (NEGATIVE); LEUKOCYTE ESTERASE, URINE NEGATIVE (NEGATIVE); NITRITE,URINE NEGATIVE (NEGATIVE); OCCULT BLOOD,URINE TRACE-LYSE (NEGATIVE); PROTEIN,URINE TRACE mg/dL (NEGATIVE); UROBILINOGEN,URINE 0.2 (NORMAL) E.U./dL (NORMAL)
[2023-06-20 11:10] LABS: BASOPHILS % (AUTO) 0.3 %; EOSINOPHILS % (AUTO) 0.3 %; LYMPHOCYTES % (AUTO) 8.2 %; MEAN CORPUSCULAR HEMOGLOBIN 31.8 pg (27.0-31.0); MEAN CORPUSCULAR HGB CONC 33.3 g/dL (32.0-36.0); MEAN CORPUSCULAR VOLUME 95.3 fL (81.0-99.0); MEAN PLATELET VOLUME 9.7 fL (7.9-10.8); MONOCYTES # (AUTO) 0.7 10^3/uL (0.0-1.0); MONOCYTES % (AUTO) 5.4 %; NEUTROPHILS # (AUTO) 10.7 10^3/uL (1.5-6.6); NEUTROPHILS % (AUTO) 85.5 %; PLT - PLATELET COUNT 281 10^3/uL (130-450); RED BLOOD COUNT 4.72 10^6/uL (4.20-5.40); RED CELL DISTRIBUTION WIDTH 12.4 % (12.0-15.0); WHITE BLOOD COUNT 12.5 x10^3/uL (4.8-10.8)
[2023-06-20 11:12] LABS: CLARITY,URINE CLEAR (CLEAR)
--- NOTE | 2023-06-20 11:30 | ED Physician Documentation ---
PD HPI ABD PAIN - Stated complaint Stated Complaint: ABD PX - Chief complaint Chief Complaint: Abd Pain - History obtained from History obtained from: Patient, Family ( Haider) - History of Present Illness Timing - onset: How many days ago (2) Timing - duration: Days (2) Timing - details: Gradual onset, Still present Quality: Sharp, Pain Location: RLQ, Suprapubic, LLQ Radiation: Lower back Improved by: Laying still Worsened by: Moving, Breathing, Position, Palpation Associated symptoms: Nausea, Vomiting, Diarrhea Similar symptoms before: Has not had sx before Recently seen: Not recently seen - Additional information Additional information: Previously well 52-year-old Toshia Prasad has developed an acute abdominal pain that began 2 nights ago. She had pain that kept her awake evening then Thursday during the day she began to develop nausea vomiting and diarrhea. When she had the vomiting her pain shifted from the epigastrium to the lower abdomen and then progressively worsened. Today she is not able to stand upright and she is not able to walk without severe pain. Review of Systems Constitutional: reports: Fever, Chills Ears: denies: Ear pain Nose: denies: Congestion Throat: denies: Sore throat Cardiac: denies: Chest pain / pressure Respiratory: denies: Dyspnea, Cough GI: reports: Abdominal Pain, Nausea, Vomiting, Diarrhea : denies: Dysuria, Frequency PD PAST MEDICAL HISTORY - Past Medical History Past Medical History: Yes Cardiovascular: Deep vein thrombosis Respiratory: Pneumonia Neuro: None Endocrine/Autoimmune: None GI: GERD, Hiatal hernia DOCUMENTATION LEAD: Ovarian cysts : Chronic bladder infection HEENT: None Psych: Anxiety Musculoskeletal: None Derm: None - Past Surgical History Past Surgical History: Yes /DOCUMENTATION LEAD: Hysterectomy, Other - Present Medications Home Medications: Ambulatory Orders Medication Instructions Recorded Confirmed Calcium Carbonate [Calcium] 600 mg PO DAILY 12/04/20 06/20/23 Vitamin B Complex Vit C No.3 [B 1 each PO DAILY 12/04/20 06/20/23 Complex with Vitamin C] [place]-3/Dha/Epa/Fish Oil [Fish Oil 1 tab ORAL DAILY 12/24/20 06/20/23 1,000 mg Softgel] Venlafaxine ER [Effexor ER] 37.5 mg PO DAILY 06/20/23 06/20/23 - Allergies Allergies/Adverse Reactions: Allergies Allergy/AdvReac Type Severity Reaction Status Date / Time meperidine HCl * AdvReac Severe Anxiety Verified 06/20/23 10:32 [From Demerol] propoxyphene napsylate * AdvReac Severe Anxiety Verified 06/20/23 10:32 [From Darvocet-N 100] morphine AdvReac Intermediate Headache Verified 06/20/23 10:32 lactose AdvReac Cramps Verified 06/20/23 10:32 - Social History Does the pt smoke?: No Smoking Status: Never smoker Does the pt drink ETOH?: Yes Does the pt have substance abuse?: No - Immunizations Immunizations are current?: Yes - POLST Patient has POLST: No PD ED PE NORMAL - Vitals Vital signs reviewed: Yes (Tachycardic) - General General: Alert and oriented X 3, Well developed/nourished, Other (The patient appears to be in pain with on call pharmacy technician tone and flattened affect.) - HEENT HEENT: Atraumatic, PERRL, EOMI - Neck Neck: Supple, no meningeal sign, No bony TTP - Cardiac Cardiac: RRR, No murmur - Respiratory Respiratory: No respiratory distress, Clear bilaterally - Abdomen Abdomen: Soft, Non distended, No organomegaly, Other (There is generalized tenderness and tenderness referred to the lower abdomen with any movement of the patient. Specifically there is guarding tenderness across the lower abdomen.) - Back Back: No CVA TTP, No spinal TTP - Derm Derm: Normal color, Warm and dry, No rash - Extremities Extremities: No deformity, No edema - Neuro Neuro: Alert and oriented X 3, band and cuff cutter 2-12 intact, No motor deficit, No sensory deficit, Normal speech Eye Opening: Spontaneous Motor: Obeys Commands Verbal: Oriented GCS Score: 15 - Psych Psych: Normal mood Results - Vitals Vitals: Vital Signs - 24 hr 06/20/23 10:32 Temperature 37.4 C Heart Rate 101 H Respiratory 18 Rate Blood Pressure 115/78 O2 Saturation 98 Oxygen O2 Source Room air - Labs Labs: Laboratory Tests 06/20/23 06/20/23 06/20/23 10:58 10:58 11:00 WBC 12.5 H RBC 4.72 Hgb 15.0 Hct 45.0 MCV 95.3 MCH 31.8 H MCHC 33.3 RDW 12.4 Plt Count 281 MPV 9.7 Neut # (Auto) 10.7 H Lymph # (Auto) 1.0 L [place] # (Auto) 0.7 Eos # (Auto) 0.0 Baso # (Auto) 0.0 Absolute Nucleated RBC 0.00 Nucleated RBC % 0.0 Sodium 134 L Potassium 4.5 Chloride 98 L Carbon Dioxide 28 Anion Gap 8.0 BUN 11 Creatinine 0.7 Estimated GFR (MDRD) 87 L Glucose 98 Calcium 10.2 Total Bilirubin 0.8 AST 26 ALT 14 Alkaline Phosphatase 67 Total Protein 7.9 Albumin 4.6 Globulin 3.3 Albumin/Globulin Ratio 1.4 Lipase 12 Urine Color YELLOW Urine Clarity CLEAR Urine pH 8.0 H Ur Specific [place] 1.010 Urine Protein TRACE Urine Glucose (UA) NEGATIVE Urine Ketones NEGATIVE Urine Occult Blood TRACE-LYSE Urine Nitrite NEGATIVE Urine Bilirubin NEGATIVE Urine Urobilinogen 0.2 (NORMAL) Ur Leukocyte Esterase NEGATIVE Ur Microscopic Review NOT INDICATED Urine Culture Comments NOT INDICATED - Rads (name of study) CT ab/pel w Relevant Findings:: Prelim report reviewed (Impression: Acute appendicitis. Appendix is dilated, hyperemic and there of vigorous periappendiceal inflammatory changes present without evidence of organized abscess.), Discussed with rads (looks like appendicitis ), EMP independent interpretation of test Procedures - Bedside sono Bedside sono by EMP: With use of POCUS the right upper quadrant is imaged the gallbladder is sonographically nontender. There is no pericholecystic fluid. PD Medical Decision Making - ED course Complexity details: reviewed old records, reviewed results, re-evaluated patient, considered differential, d/w patient Reviewed Lab Results: We reviewed a complete blood count showing an elevated white blood cell count of 12.5 normal hemoglobin hematocrit and platelets chemistries showed normal electrolytes normal kidney and liver function urinalysis is unremarkable.This patient's blood work is consistent with the diagnosis offered by imaging of appendicitis. Mild elevation of the white blood cell count otherwise unremarkable. We did not obtain a test as the patient has had hysterectomy and tubal ligation. ED course: 52-year-old female with 2 days of abdominal pain has a crescendo in her pain and she is diagnosed with appendicitis on CT imaging. Dr. Haider Foster is consulted in the case and request we call in the surgical team. Departure - Departure Disposition: ED Transfer to [facility] Clinical Impression: Appendicitis Qualifiers: Appendicitis type: acute appendicitis Acute appendicitis type: with localized peritonitis Appendicitis gangrene presence: without gangrene Appendicitis perforation presence: without perforation Appendicitis abscess presence: without abscess Qualified Code(s): K35.30 - Acute appendicitis with localized peritonitis, without perforation or gangrene Condition: Stable Forms: PCP List
[2023-06-20 11:36] LABS: ALBUMIN 4.6 g/dL (3.2-5.5); ALBUMIN/GLOBULIN RATIO 1.4 (1.0-2.2); BILIRUBIN,TOTAL 0.8 mg/dL (0.2-1.0); CALCIUM 10.2 mg/dL (8.5-10.3); CREATININE 0.7 mg/dL (0.6-1.3); POTASSIUM 4.5 mmol/L (3.5-4.5); TOTAL PROTEIN 7.9 g/dL (6.4-8.9)
[2023-06-20] MEDS ORDERED: iohexoL-300 100 ML VIAL ONE (11:59)
--- NOTE | 2023-06-20 12:44 | CT Report ---
PROCEDURE: CT abdomen pelvis with contrast INDICATIONS: lower abdominal pain with peritoneal signs TECHNIQUE: Helical axial CT of the abdomen and pelvis was obtained after intravenous contrast adminis tration and reformatted in multiple planes. Radiation dose reduction was achieved using automated exp osure control or adjustment of mA and/or kV according to patient size. COMPARISON: None FINDINGS: Lower thorax: The lung bases are clear. Heart size normal. No hiatal hernia. Liver: Normal in size and attenuation. No contour deformity present. Hepatic fatty infiltration note d adjacent to the falciform ligament. Small right hepatic cyst Biliary system: No calcified cholelithiasis or pericholecystic inflammation. No evidence of bile du ct dilatation. Pancreas: Unremarkable without mass or inflammation evident. Spleen: Normal in size and density. Adrenals: Normal morphology and density. Reproductive system: Unremarkable as visualized. Urinary system: Normal renal size and attenuation. No renal calculi, hydronephrosis, or solid mass p resent. Urinary bladder unremarkable. Right renal 1 cm simple cyst. No hydronephrosis bilaterally. Gastrointestinal system: The bowel appears unremarkable with no evidence of bowel obstruction or inf lammation. The stomach appears unremarkable. Multiple diverticuli arise from the sigmoid colon witho ut evidence of diverticulitis Appendix: The appendix is hyperemic with wall thickening measuring 1 cm in overall diameter. Periapp endiceal inflammatory changes without evidence of organized abscess. Peritoneal spaces: No mesenteric or retroperitoneal adenopathy. No free air. Small free fluid. Vasculature: The IVC, aorta and iliac vasculature are unremarkable. Abdominal wall: Abdominal wall is intact without evidence of ventral or inguinal hernias. Musculoskeletal: Normal bone mineralization. No acute fractures. IMPRESSION: Acute appendicitis. Appendix is dilated, hyperemic and there are vigorous periappendiceal inflammator y changes present without evidence of organized abscess. Note: Critical results were discussed with the patient's physician in the ER on 06/20/2023 at 11:41 AM [place] time. Reviewed by: Rodolfo Mueller MD on 06/20/2023 11:42 AM AKDT Approved by: Rodolfo Mueller MD on 06/20/2023 11:42 AM AKDT Station ID: [id number]
[2023-06-20] MEDS: PIPERACILLIN/TAZOBACTAM 3.375 GM in SODIUM CHLORIDE 0.9% MINIBAG 100 ML IV STA (13:40)
--- NOTE | 2023-06-20 13:47 | HISTORY & PHYSICAL EXAMINATION ---
Chief Complaint - Chief Complaint Chief Complaint: abdominal pain History of Present Illness - Admitted From Admitted From:: ed - History Obtained From Records Reviewed: yes History obtained from: pt Exam Limitations: none - History of Present Illness HPI Comment/Other: progressive right lower quadrant abdominal pain over 2 days. no appetite or food today. hurts to breath and move. History - Past Medical History Cardiovascular: reports: Deep vein thrombosis Respiratory: reports: Pneumonia Neuro: reports: None Endocrine/Autoimmune: reports: None GI: reports: GERD, Hiatal hernia RN BARIATRIC: reports: Ovarian cysts : reports: Chronic bladder infection HEENT: reports: None Psych: reports: Anxiety Musculoskeletal: reports: None Derm: reports: None MRSA Hx?: No - Past Surgical History /RN BARIATRIC: reports: Hysterectomy, Other - POLST Patient has POLST: No Meds/Allgy - Home Medications Home Medications: Ambulatory Orders Medication Instructions Recorded Confirmed Calcium Carbonate [Calcium] 600 mg PO DAILY 12/04/20 06/20/23 Vitamin B Complex Vit C No.3 [B 1 each PO DAILY 12/04/20 06/20/23 Complex with Vitamin C] [place]-3/Dha/Epa/Fish Oil [Fish Oil 1 tab ORAL DAILY 12/24/20 06/20/23 1,000 mg Softgel] Venlafaxine ER [Effexor ER] 37.5 mg PO DAILY 06/20/23 06/20/23 - Allergies Allergies/Adverse Reactions: Allergies Allergy/AdvReac Type Severity Reaction Status Date / Time meperidine HCl * AdvReac Severe Anxiety Verified 06/20/23 10:32 [From Demerol] propoxyphene napsylate * AdvReac Severe Anxiety Verified 06/20/23 10:32 [From Darvocet-N 100] morphine AdvReac Intermediate Headache Verified 06/20/23 10:32 lactose AdvReac Cramps Verified 06/20/23 10:32 Review of Systems - Other Findings Other Findings: 10 pt ros as above otherwise unremarkable Exam - Vital Signs Vital Signs: Vital Signs x48h Temp Pulse Resp BP Pulse Ox 06/20/23 12:38 37.9 C 87 14 118/68 100 06/20/23 10:32 37.4 C 101 H 18 115/78 98 - Physical Exam General Appearance: positive: No acute distress, Alert Eyes Bilateral: positive: PERRL, EOMI ENT: positive: No signs of dehydration Neck: positive: No JVD, Trachea midline Respiratory: positive: No respiratory distress Cardiovascular: positive: Regular rate & rhythm Abdomen: positive: No distention, Other (tender right lower quadrant with perit zambrano signs) Neurologic/Psychiatric: positive: Oriented x3 Conclusion/Plan - Problem List (1) Appendicitis Conclusion/Plan: plan appendectomy. parq held and consent obtained Qualifiers: Appendicitis type: acute appendicitis Acute appendicitis type: with localized peritonitis Appendicitis gangrene presence: without gangrene Appendicitis perforation presence: without perforation Appendicitis abscess presence: without abscess Qualified Code(s): K35.30 - Acute appendicitis with localized peritonitis, without perforation or gangrene - Lab Results Fish Bones: 06/20/23 10:58 06/20/23 10:58 - Diagnostic Imaging Results Diagnostic Imaging Results: positive: Read independently
[2023-06-20] MEDS ORDERED: PROPOFOL 200 MG/20 ML VIAL IVP ONE (13:53)
[2023-06-20] MEDS ORDERED: LIDOCAINE-PF 2% 10 ML AMP SUBQ ONE (13:53)
[2023-06-20] MEDS ORDERED: ONDANSETRON 4 MG/2 ML VIAL ONE (13:54)
[2023-06-20] MEDS ORDERED: ROCURONIUM 50 MG/5 ML VIAL ONE (13:54)
[2023-06-20] MEDS ORDERED: DEXAMETHASONE 4 MG/ML VIAL ONE (13:54)
[2023-06-20] MEDS ORDERED: KETOROLAC 30 MG/ML VIAL ONE (13:54)
--- NOTE | 2023-06-20 14:05 | ANESTHESIA ---
Pre-Anesthesia VS, & Labs - Diagnosis acute appendicitis, peritonitis - Procedure lap appy Vital Signs: Temp Pulse Resp BP Pulse Ox O2 Flow Rate 37.9 C 87 14 118/68 100 06/20/23 12:38 06/20/23 12:38 06/20/23 12:38 06/20/23 12:38 06/20/23 12:38 Height: 5 ft 5 in Weight (kg): 61.235 kg Body Mass Index: 22.4 BMI Classification: Normal - NPO >8 hours - Is Patient ?: No - Lab Results Current Lab Results: Laboratory Tests 06/20/23 10:58: Sodium 134 L, Potassium 4.5, Chloride 98 L, Carbon Dioxide 28, Anion Gap 8.0, BUN 11, Creatinine 0.7, Estimated GFR (MDRD) 87 L, Glucose 98, Calcium 10.2, Total Bilirubin 0.8, AST 26, ALT 14, Alkaline Phosphatase 67, Total Protein 7.9, Albumin 4.6, Globulin 3.3, Albumin/Globulin Ratio 1.4, Lipase 12 06/20/23 10:58: WBC 12.5 H, RBC 4.72, Hgb 15.0, Hct 45.0, MCV 95.3, MCH 31.8 H, MCHC 33.3, RDW 12.4, Plt Count 281, MPV 9.7, Neut # (Auto) 10.7 H, Lymph # (Auto) 1.0 L, [place] # (Auto) 0.7, Eos # (Auto) 0.0, Baso # (Auto) 0.0, Absolute Nucleated RBC 0.00, Nucleated RBC % 0.0 Fish Bones: 06/20/23 10:58 06/20/23 10:58 Home Medications and Allergies Home Medications: Ambulatory Orders Venlafaxine ER [Effexor ER] 37.5 mg PO DAILY 06/20/23 Active Medications Piperacillin Sod/Tazobactam (Sod 3.375 gm/ Sodium Chloride) 100 mls @ 200 mls/hr IV ONCE STA Stop: 06/20/23 13:59 Last Admin: 06/20/23 13:40 Dose: 200 mls/hr Calcium Carbonate [Calcium] 600 mg PO DAILY 12/04/20 Vitamin B Complex Vit C No.3 [B Complex with Vitamin C] 1 each PO DAILY 12/04/20 [place]-3/Dha/Epa/Fish Oil [Fish Oil 1,000 mg Softgel] 1 tab ORAL DAILY 12/24/20 Venlafaxine ER [Effexor ER] 37.5 mg PO DAILY 06/20/23 Allergies/Adverse Reactions: Allergies Allergy/AdvReac Type Severity Reaction Status Date / Time meperidine HCl * AdvReac Severe Anxiety Verified 06/20/23 10:32 [From Demerol] propoxyphene napsylate * AdvReac Severe Anxiety Verified 06/20/23 10:32 [From Darvocet-N 100] morphine AdvReac Intermediate Headache Verified 06/20/23 10:32 lactose AdvReac Cramps Verified 06/20/23 10:32 Anes History & Medical History - Anesthetic History Anesthesia Complications: reports: Post-Operative Nausea/Vomiting Family history of Anesthesia Complications: Denies Family history of Malignant Hyperthermia: Denies - Medical History Cardiovascular: reports: Deep vein thrombosis (not current), Other (HOTN) Pulmonary: reports: Pneumonia (not current) Gastrointestinal: reports: GERD, Hiatal hernia Urinary: reports: Chronic bladder infection Neuro: reports: None Musculoskeletal: reports: None Endocrine/Autoimmune: reports: None Blood Disorders: reports: None Skin: reports: None Smoking Status: Never smoker Psychosocial: reports: No issues indicated, Depression - Surgical History Urologic: reports: Bladder surgery Gynecologic: reports: Hysterectomy, Other Exam General: Alert, Oriented x3, Cooperative, Mild distress Dental: WNL, Loose/Frag Mouth and Teeth Image: 1 - loose Mouth Openin Fingerbreadth Neck Mobility: Normal Mallampati classification: II Respiratory: Lungs clear Cardiovascular: Regular rate Plan Anesthesia Type: General Consent for Procedure(s) Verified and Reviewed: Yes Code Status: Attempt Resuscitation ASA classification: 2-Mild systemic disease Is this case an emergency?: Yes
[2023-06-20] MEDS ORDERED: MIDAZOLAM 2 MG/2 ML VIAL ONE (14:12)
[2023-06-20] MEDS ORDERED: fentaNYL 100 MCG/2 ML VIAL ONE ×2 (14:12→15:42)
[2023-06-20] MEDS ORDERED: SCOPOLAMINE PATCH TOP ONE (14:15)
[2023-06-20] MEDS ORDERED: BUPIVACAINE 0.25% PF 30 ML VIAL ONE (14:24)
[2023-06-20] MEDS ORDERED: LIDOCAINE-MPF 1% 30 ML VIAL ONE (14:25)
[2023-06-20] MEDS ORDERED: ONDANSETRON 4 MG/2 ML VIAL IVP PRN ×2 (14:26→16:05)
[2023-06-20] MEDS ORDERED: NALOXONE 0.4 MG/ML VIAL IVP PRN (14:26)
[2023-06-20] MEDS ORDERED: ePHEDrine 50 MG/ML VIAL IVP PRN (14:26)
[2023-06-20] MEDS ORDERED: fentaNYL 100 MCG/2 ML VIAL IVP PRN (14:26)
[2023-06-20] MEDS ORDERED: ATROPINE ABBOJECT 1 MG/10 ML SYRINGE IVP PRN (14:26)
[2023-06-20] MEDS ORDERED: MORPHINE 2 MG/ML CARPUJECT IVP PRN (14:26)
[2023-06-20] MEDS ORDERED: HYDROmorphone 0.5 MG/0.5 ML SYRINGE IVP PRN ×2 (14:26→16:05)
[2023-06-20] MEDS: LACTATED RINGERS 1,000 ML IV SCH (14:29)
[2023-06-20] MEDS ORDERED: ACETAMINOPHEN 1,000 MG/100 ML 1,000 MG/100 ML BAG IV ONE (14:55)
[2023-06-20] MEDS: iohexoL-300 100 ML VIAL IVP ONE (14:58)
[2023-06-20] MEDS: BUPIVACAINE 0.25% PF 30 ML VIAL SUBQ ONE (15:12)
[2023-06-20] MEDS ORDERED: SUGAMMADEX 200 MG/2 ML VIAL IVP ONE (15:42)
[2023-06-20] MEDS ORDERED: ONDANSETRON ODT 4 MG TABLET TL PRN (16:05)
--- NOTE | 2023-06-20 16:14 | OPERATIVE REPORT ---
Operative Report - General Procedure Date: 06/20/23 Planned Procedure: lap appendectomy Pre-Op Diagnosis: appendicitis with peritonitis Procedure Performed: lap appy Post Op Diagnosis: appendicitis with peritonitis - Procedure Note Primary Surgeon: teri dumont Anesthesia Technique: General ET tube, Local Pathology: appendix Estimated Blood Loss (mL): 5 Drain/Tube Type: Elio Thornton flat drain Indications: peritonitis and significant pain Findings: 100 ml of moderately thick adler green fluid in abdomen significant fibropurulent exudate Complications: none - Other Other Information/Narrative: the patient was properly identified brought to the operating room and placed in supine position. The patient was previously given antibiotics. Sequential com pression devices were placed. General endotracheal anesthesia was induced. The patient was prepped and draped in a sterile fashion. Local anesthetic was given to incision areas. An infraumbilical incision was made in and proceeded down to the fascia. The fascia was incised lifted upwards and abdomen entered with a Veress needle. CO2 was insufflated to a pressure of 15. A 12 mm trocar was p laced with 30 degree scope. There was no evidence of injury from Veress needle or trocar placement. Under direct vision a 5 mm trocar was placed suprapubic and a 5 mm trocar was placed in the right upper quadrant. A significant amount of adler-green moderately thick fluid in the pelvis was aspirated. Appendix was identified and retracted anteriorly. Peritoneal attachments were taken down with careful use of cautery. Appendix was mobilized more anterior. A plane was then created between the mesoappendix and the appendix at the cecum. Appendix was divided with an Endo CARLEE intestinal load to include up a small portion of the cecum. The mesoappendix was then divided with an Endo CARLEE vascular load. There was secure closure at the cecum and hemostasis was assured. The appendix was brought out. The abdomen was thoroughly irrigated and hemostasis again assured. A 10 flat Elio-Thonrton drain was placed in the right abdomen and pelvis and brought out through the suprapubic trocar site. It was secured with a 3-0 nylon. Trochars were removed under direct vision. Fascia at the infraumbilical site was closed with a running 0 Vicryl suture. Subcutaneous tissue was irrigated and skin at the umbilicus reapproximated with a single buried interrupted 4-0 Monocryl. Dressings were applied. The patient tolerated the procedure well was awakened and brought to recovery in good condition.
[2023-06-20] MEDS: LACTATED RINGERS 700 ML IV ONE ×2 (16:16→16:31)
[2023-06-20] MEDS ORDERED: ACETAMINOPHEN/CODEINE 300 MG/30 MG TABLET PO PRN (16:26)
--- NOTE | 2023-06-20 16:48 | ANESTHESIA POST OP EVALUATION ---
Anesthesia Post Eval - Post Anesthesia Eval Vitals: Last Vital Signs Temp 0 C L 06/20/23 16:30 Pulse 77 06/20/23 16:30 Resp 10 L 06/20/23 16:30 BP 110/57 L 06/20/23 16:30 Pulse Ox 99 06/20/23 16:30 O2 Flow Rate CV Function Including HR & BP: Stable Pain Control: Satisfactory Nausea & Vomiting: Negative Mental Status: Baseline Respiratory Status: Airway Patent Hydration Status: Satisfactory Anesthesia Complications: None
[2023-06-20] MEDS: D5.45NS W/20 MEQ KCL 1,000 ML IV SCH (17:00)
[2023-06-20] MEDS: PIPERACILLIN/TAZOBACTAM 3.375 GM in SODIUM CHLORIDE 0.9% MINIBAG 100 ML IV SCH (17:00)
[2023-06-20] MEDS: oxyCODONE 5 MG TABLET PO PRN (17:12)
[2023-06-20] MEDS: SODIUM CHLORIDE FLUSH 0.9% 10 ML SYRINGE IVP SCH (17:25)
[2023-06-20] MEDS: FAMOTIDINE 20 MG/2 ML VIAL IVP SCH (20:51)
[2023-06-20] MEDS: ACETAMINOPHEN 325 MG TABLET PO PRN (22:39)
[2023-06-21] MEDS: VENLAFAXINE ER 37.5 MG CAPSULE PO SCH (08:08)
--- NOTE | 2023-06-21 12:58 | PROVIDER PROGRESS NOTE ---
Subjective - Subjective Pt reports feeling: Improved (no nausea. no appetite) Objective - Vital Signs/Intake & Output Vital Signs: Vital Signs x48h Temp Pulse Pulse Resp BP BP Pulse Ox 06/21/23 12:40 37.0 C 61 18 106/68 94 06/21/23 08:00 36.7 C 61 18 95/59 L 97 06/21/23 05:51 36.6 C 59 L 18 99/58 L 98 Intake & Output: Intake & Output 06/18/23 06/19/23 06/20/23 06/21/23 23:59 23:59 23:59 23:59 Intake Total 1201 2567.5 Output Total 150 20 Balance 1051 2547.5 - Objective General Appearance: positive: No acute distress, Alert Respiratory: positive: No respiratory distress Abdomen: positive: Non-tender, No distention, Other (michael thin serosanguinous) Neurologic/Psychiatric: positive: Oriented x3 - Lab Results Fish Bones: 06/20/23 10:58 06/20/23 10:58 Assessment/Plan - Problem List (1) Appendicitis Impression: she had significant appendicitis and peritonitis. still with ileus. plan continue ivf and iv abxs ok to have yogurt in addition to clear liquid diet Qualifiers: Appendicitis type: acute appendicitis Acute appendicitis type: with generalized peritonitis Appendicitis gangrene presence: without gangrene Appendicitis perforation presence: without perforation Appendicitis abscess presence: without abscess Qualified Code(s): K35.200 - Acute appendicitis with generalized peritonitis, without perforation or abscess
--- NOTE | 2023-06-21 13:32 | PHARMACY PROGRESS NOTE ---
- Best Possible Medication History Admit Date and Time: 06/21/23 1249 Processed by: Nursing Medications reviewed in ED?: Yes Medication History completed: Yes Secondary Source(s): Insurance records As the person ultimately responsible for medication therapy, providers are able to order a medication from an existing home medication list in [facility] via the "Reconcile Routine" prior to Confirmation of that medication by technical support coordinator. Such practice is discouraged except when the physician, in their clinical judgment, deems that a medical need exists for a medication without regard to previous use.
[2023-06-21] MEDS: SODIUM CHLORIDE FLUSH 0.9% 10 ML SYRINGE IVP PRN (16:35)
[2023-06-21] MEDS: HEPARIN 5,000 UNIT/ML VIAL SUBQ SCH (20:43)
--- NOTE | 2023-06-22 11:28 | PROVIDER PROGRESS NOTE ---
Subjective - General Admit Date: 06/21/23 Procedure Date: 06/20/23 Post Op Days: 2 Procedure Performed: lap appy and abdominal washout - Review of Systems Wound/Incisions: positive: Healing well General: negative: Appetite - Other Other Information/Narrative: Patient states she is feeling more sore than yesterday, but otherwise "doing ok." She is tolerating clears without n/v, and passing flatus, but denies having any appetite and has not had a bowel movement since admission. +ambulation only to the restroom in her room. Denies f/c. Objective - Patient Data Vital Signs: Vital Signs x48h Temp Pulse Pulse Resp BP Pulse Ox 06/22/23 08:06 36.6 C 55 L 16 106/63 98 06/22/23 05:21 93/57 L 06/22/23 03:51 36.5 C 61 17 92/63 96 Weight: Weight 06/20/23 06/21/23 06/22/23 23:59 23:59 23:59 Weight (kg) 61.235 kg 61.2 kg Intake & Output: Intake and Output Totals x24h 06/20/23 06/21/23 06/22/23 23:59 23:59 23:59 Intake Total 1201 4267.5 2632.917 Output Total 150 50 190 Balance 1051 4217.5 2442.917 - Lab Results Lab Results: 06/20/23 10:58 06/20/23 10:58 Other Lab Results: AM labs pending. - Current Medications Current Medications: Current Medications Generic Name Dose Route Start Last Admin Trade Name Freq PRN Reason Stop Dose Admin Acetaminophen 650 mg 06/20/23 16:05 06/22/23 08:55 Acetaminophen 325 Mg Tablet PO 650 mg Q4HR PRN Administration Pain 1 to 4, or Fever Heparin Sodium (Porcine) 5,000 unit 06/21/23 21:00 06/22/23 09:09 Heparin 5,000 Unit/Ml Vial SUBQ 5,000 unit BID SARAH Administration Oxycodone HCl 5 mg 06/20/23 16:05 06/22/23 05:20 Oxycodone 5 Mg Tablet PO 5 mg Q4HR PRN Administration Pain 5 to 7 Sodium Chloride 10 ml 06/20/23 16:05 06/21/23 16:35 Sodium Chloride Flush 0.9% 10 Ml Syringe IVP 10 ml PRN PRN Administration NEEDED PER PROVIDER ORDERS Sodium Chloride 10 ml 06/20/23 17:00 06/22/23 08:55 Sodium Chloride Flush 0.9% 10 Ml Syringe IVP 10 ml 0100,0900,1700 SARAH Administration Venlafaxine HCl 37.5 mg 06/21/23 09:00 06/22/23 08:55 Venlafaxine Er 37.5 Mg Capsule PO 37.5 mg DAILY SARAH Administration - Physical Exam Wound/Incisions: positive: Healing well, Dressing dry and intact, Drainage (IGNACIO drain is serous and cloudy, amount decreasing.) General Appearance: positive: No acute distress, Alert Eyes Bilateral: positive: Normal inspection, PERRL ENT: positive: No signs of dehydration Neck: positive: Trachea midline Respiratory: positive: No respiratory distress Cardiovascular: positive: Regular rate & rhythm Abdomen: positive: No distention, Tenderness (incisional and RLQ, appropriate). negative: Guarding, Rebound Skin: positive: No rash Extremities: positive: Full ROM, Nml appearance (aside from mutiple IV attempt sites) Neurologic/Psychiatric: positive: Oriented x3 ABX Reporting Has patient been on IV antibiotics over the past 48 hours?: Yes Impression/Plan - Problem List Problem List: 52 y/o F with appendicitis and peritonitis, s/p lap appendectomy, POD#2. - pain controlled with meds - tolerating clears, passing flatus. Will adat to dairy free regular diet, patient encouraged to eat small amounts to start. - will transition to PO abx today - SLIV - increase activity today - h/o anxiety: will restart home meds today. - Ppx: on heparin for DVT ppx, pepcid for GI ppx - if patient tolerating regular diet and PO abx in AM, plan for likely discharge to home tomorrow.
[2023-06-22] MEDS: AMOX/CLAV 875 MG/125 MG TABLET PO SCH (12:11)
[2023-06-22 12:18] LABS: CALCIUM 8.6 mg/dL (8.5-10.3); CREATININE 0.6 mg/dL (0.6-1.3); POTASSIUM 4.1 mmol/L (3.5-4.5)
[2023-06-22] MEDS: FAMOTIDINE 20 MG TABLET PO SCH (20:37)
[2023-06-23 05:24] LABS: HCT - HEMATOCRIT 36.7 % (37.0-47.0); HGB - HEMOGLOBIN 12.2 g/dL (12.0-16.0); MEAN CORPUSCULAR HEMOGLOBIN 31.9 pg (27.0-31.0); MEAN CORPUSCULAR HGB CONC 33.2 g/dL (32.0-36.0); MEAN CORPUSCULAR VOLUME 96.1 fL (81.0-99.0); MEAN PLATELET VOLUME 9.7 fL (7.9-10.8); RED BLOOD COUNT 3.82 10^6/uL (4.20-5.40); RED CELL DISTRIBUTION WIDTH 12.2 % (12.0-15.0); WHITE BLOOD COUNT 6.9 x10^3/uL (4.8-10.8)
--- NOTE | 2023-06-23 10:50 | Discharge Plan ---
Discharge Plan Problem Reviewed?: Yes Disposition: Home, Self Care Condition: Stable No Smoking: If you smoke, Please STOP! Call for help.
--- NOTE | 2023-06-23 10:54 | Discharge Plan ---
Discharge Plan Problem Reviewed?: Yes Disposition: Home, Self Care Condition: Good Prescriptions: Amox/Clav 875/125 [Augmentin 875/125 Tab] 1 tablet PO Q12H 5 Days #10 tablet Acetaminophen/Cod 300/30 [Tylenol #3] 1 each PO Q4-6H PRN #25 tablet PRN Reason: Abdominal Pain Diet: Regular Activity Restrictions: No Restrictions Shower Restrictions: No Driving Restrictions: No Health Concerns: recent surgery for appendicitis with peritonitis Plan of Treatment: home in good condition with drain and oral antibiotics for 5 days surgery 06/20/2023 appendectomy Assessment: as above. afebrile and tolerating diet. normal post op abdominal examination Additional Instructions or Follow Up instructions: call the surgery office and make an appointment for or thursday for drain removal call for fever over 101, incision area redness, continued nausea and vomiting, any concerns [phone] No Smoking: If you smoke, Please STOP! Call for help.
--- NOTE | 2023-06-23 10:57 | DISCHARGE SUMMARY ---
"Discharge Summary Admit Date: 06/20/23 Discharge Date: 06/23/23 Discharging Provider: teri dumont Code Status: Attempt Resuscitation Condition at Discharge: Good Discharge Disposition: 01 Home, Self Care Discharge [facility] Name: [facility] - DIAGNOSES Admission Diagnoses: appendicitis with peritonitis Discharge Diagnoses with Status of Each Condition: home in good condition - HPI History of Present Illness: surgery 06/20/2023 for appendicitis with peritonitis. 100 ml thick adler green f luid in abdomen. drain placed. home with drain and 5 days oral antibiotics - CONSULTS | PROCEDURES Procedures: as above - ALLERGIES Allergies/Adverse Reactions: Allergies Allergy/AdvReac Type Severity Reaction Status Date / Time meperidine HCl * AdvReac Severe Anxiety Verified 06/20/23 10:32 [From Demerol] propoxyphene napsylate * AdvReac Severe Anxiety Verified 06/20/23 10:32 [From Darvocet-N 100] morphine AdvReac Intermediate Headache Verified 06/20/23 10:32 lactose AdvReac Cramps Verified 06/20/23 10:32 - MEDICATIONS Home Medications: Ambulatory Orders Medication Instructions Recorded Confirmed Calcium Carbonate [Calcium] 600 mg PO DAILY 12/04/20 06/20/23 Vitamin B Complex Vit C No.3 [B 1 each PO DAILY 12/04/20 06/20/23 Complex with Vitamin C] [place]-3/Dha/Epa/Fish Oil [Fish Oil 1 tab ORAL DAILY 12/24/20 06/20/23 1,000 mg Softgel] Venlafaxine ER [Effexor ER] 37.5 mg PO DAILY 06/20/23 06/20/23 Acetaminophen/Cod 300/30 [Tylenol 1 each PO Q4-6H PRN #25 tablet 06/23/23 #3] Amox/Clav 875/125 [Augmentin 1 tablet PO Q12H 5 Days #10 tablet 06/23/23 875/125 Tab] - PHYSICAL EXAM AT DISCHARGE General Appearance: positive: No acute distress, Alert Eyes Bilateral: positive: PERRL, EOMI Respiratory: positive: No respiratory distress Abdomen: positive: No distention, Other (michael slightly cloudy) Neurologic/Psychiatric: positive: Oriented x3 - LABS Result Diagrams: 06/23/23 04:31 06/22/23 11:53 - FOLLOW UP Follow Up: call the surgery office to make an appointment for drain removal or thursday this week call with any concerns [phone]"
[2023-06-23 11:48] VITALS: BP 103/58; O2SAT 97
== END 2023-06-23 12:20 | disposition home or self-care (01) ==
LOC: ED 10:29 → SDS 13:37 → MS2 15:10 → SDS 06-21 12:48 → MS2 06-21 12:49
PROVIDERS: ADMIT Surgery; ATTEND Surgery
PROC: 0DTJ4ZZ Resection of Appendix, Percutaneous Endoscopic Approach (ICD-10-PCS; principal; 2023-06-20 14:00)
DX: K35.209 Acute appendicitis with generalized peritonitis, without abscess, unspecified as to perforation (principal); Z86.718 Personal history of other venous thrombosis and embolism
CPT/HCPCS: 36415; 44970; 74177; 80048; 80053; 81003; 83690; 85025; 85027; 96365; 96366; 96372; 96375; 96376; 99285; A9270; G0378; J0131; J3490; J7120; Q9967; 81001; 87086

== ENCOUNTER 2023-07-02 13:01 | Emergency (ER) | payer OTHER ==
[2023-07-02 14:26] LABS: BASOPHILS # (AUTO) 0.1 10^3/uL (0.0-0.1); BASOPHILS % (AUTO) 0.9 %; EOSINOPHILS # (AUTO) 0.3 10^3/uL (0.0-0.7); EOSINOPHILS % (AUTO) 2.9 %; HCT - HEMATOCRIT 41.1 % (37.0-47.0); HGB - HEMOGLOBIN 13.8 g/dL (12.0-16.0); LYMPHOCYTES # (AUTO) 2.3 10^3/uL (1.5-3.5); LYMPHOCYTES % (AUTO) 21.7 %; MEAN CORPUSCULAR HEMOGLOBIN 31.8 pg (27.0-31.0); MEAN CORPUSCULAR HGB CONC 33.6 g/dL (32.0-36.0); MEAN CORPUSCULAR VOLUME 94.7 fL (81.0-99.0); MEAN PLATELET VOLUME 8.5 fL (7.9-10.8); MONOCYTES # (AUTO) 0.6 10^3/uL (0.0-1.0); MONOCYTES % (AUTO) 5.4 %; NEUTROPHILS # (AUTO) 7.1 10^3/uL (1.5-6.6); NEUTROPHILS % (AUTO) 68.7 %; PLT - PLATELET COUNT 459 10^3/uL (130-450); RED BLOOD COUNT 4.34 10^6/uL (4.20-5.40); RED CELL DISTRIBUTION WIDTH 11.6 % (12.0-15.0); WHITE BLOOD COUNT 10.4 x10^3/uL (4.8-10.8)
[2023-07-02 15:03] LABS: CALCIUM 9.9 mg/dL (8.5-10.3); CREATININE 0.7 mg/dL (0.6-1.3); POTASSIUM 3.6 mmol/L (3.5-4.5)
[2023-07-02 15:19] LABS: ALBUMIN 4.5 g/dL (3.2-5.5); ALBUMIN/GLOBULIN RATIO 1.7 (1.0-2.2); BILIRUBIN,TOTAL 0.3 mg/dL (0.2-1.0); TOTAL PROTEIN 7.1 g/dL (6.4-8.9)
[2023-07-02 15:22] VITALS: O2SAT 100
[2023-07-02 15:50] LABS: BILIRUBIN,URINE NEGATIVE (NEGATIVE); GLUCOSE, URINE (UA) NEGATIVE (NEGATIVE); KETONES,URINE (UA) NEGATIVE (NEGATIVE); LEUKOCYTE ESTERASE, URINE NEGATIVE (NEGATIVE); NITRITE,URINE NEGATIVE (NEGATIVE); OCCULT BLOOD,URINE NEGATIVE (NEGATIVE); PROTEIN,URINE NEGATIVE (NEGATIVE); UROBILINOGEN,URINE 0.2 (NORMAL) E.U./dL (NORMAL)
[2023-07-02 15:53] LABS: CLARITY,URINE CLEAR (CLEAR)
--- NOTE | 2023-07-02 16:21 | ED Physician Documentation ---
PD HPI ABD PAIN - Stated complaint Stated Complaint: abd pn/diarrhea post-op - Chief complaint Chief Complaint: Abd Pain - History obtained from History obtained from: Patient - Additional information Additional information: The patient comes to the emergency department chief complaint of lower abdominal pain and copious diarrhea for the last couple of days. She is 12 days status post laparoscopic appendectomy done by Dr. Foster. She states that she understands that her appendix had ruptured but that the operation was still able to be done laparoscopically. She states that her pain really improved quite rapidly after the surgery and that she was actually feeling fairly well up until the time of the onset of pain. The patient states that she feels like she has a knot in her right lower quadrant and a knot in her left lower quadrant. She has not had any fevers. No nausea or vomiting. The diarrhea she has been passing has been brown, sometimes dark brown. She has been eating and drinking normally over the last week. The patient states she was on Augmentin for 10 days total and just finished this a couple of days ago. No other complaints at this time. PD PAST MEDICAL HISTORY - Past Medical History Cardiovascular: Deep vein thrombosis, Other Respiratory: Pneumonia Neuro: None Endocrine/Autoimmune: None GI: GERD, Hiatal hernia MICROFILMER: Ovarian cysts : Chronic bladder infection HEENT: None Psych: Anxiety Musculoskeletal: None Derm: None - Past Surgical History Past Surgical History: Yes General: Appendectomy /MICROFILMER: Hysterectomy, Other - Present Medications Home Medications: Ambulatory Orders Medication Instructions Recorded Confirmed Calcium Carbonate [Calcium] 600 mg PO DAILY 12/04/20 06/20/23 Vitamin B Complex Vit C No.3 [B 1 each PO DAILY 12/04/20 06/20/23 Complex with Vitamin C] [place]-3/Dha/Epa/Fish Oil [Fish Oil 1 tab ORAL DAILY 12/24/20 06/20/23 1,000 mg Softgel] Venlafaxine ER [Effexor ER] 37.5 mg PO DAILY 06/20/23 06/20/23 Acetaminophen/Cod 300/30 [Tylenol 1 each PO Q4-6H PRN #25 tablet 06/23/23 #3] Amox/Clav 875/125 [Augmentin 1 tablet PO Q12H 5 Days #10 tablet 06/23/23 875/125 Tab] - Allergies Allergies/Adverse Reactions: Allergies Allergy/AdvReac Type Severity Reaction Status Date / Time meperidine HCl * AdvReac Severe Anxiety Verified 07/02/23 15:16 [From Demerol] propoxyphene napsylate * AdvReac Severe Anxiety Verified 07/02/23 15:16 [From Darvocet-N 100] morphine AdvReac Intermediate Headache Verified 07/02/23 15:16 lactose AdvReac Cramps Verified 07/02/23 15:16 - Social History Does the pt smoke?: No Smoking Status: Never smoker Does the pt drink ETOH?: Yes ETOH Use: Wine Does the pt have substance abuse?: No - Immunizations Immunizations are current?: Yes - POLST Patient has POLST: No PD ED PE NORMAL - Vitals Vital signs reviewed: Yes - General General: Alert and oriented X 3, No acute distress, Well developed/nourished - HEENT HEENT: Atraumatic, PERRL, EOMI, Moist mucous membranes - Neck Neck: Supple, no meningeal sign - Cardiac Cardiac: RRR, No murmur - Respiratory Respiratory: No respiratory distress, Clear bilaterally - Abdomen Abdomen: Soft, Non distended, Other (Mild tenderness across low abdomen, no rebound or guarding. Right upper quadrant tenderness as well.) - Derm Derm: Normal color, Warm and dry, No rash - Extremities Extremities: No deformity, No edema - Neuro Neuro: Other (Alert, grossly intact.) - Psych Psych: Normal mood, Normal affect Results - Vitals Vitals: Vital Signs - 24 hr 07/02/23 07/02/23 07/02/23 13:29 15:17 16:49 Temperature 36.5 C Heart Rate 70 65 61 Respiratory 18 17 16 Rate Blood Pressure 108/72 107/78 116/75 O2 Saturation 99 100 100 07/02/23 18:22 Temperature Heart Rate 62 Respiratory 14 Rate Blood Pressure O2 Saturation 100 Oxygen O2 Source Room air - Labs Labs: Laboratory Tests 07/02/23 07/02/23 07/02/23 14:21 14:21 15:40 WBC 10.4 RBC 4.34 Hgb 13.8 Hct 41.1 MCV 94.7 MCH 31.8 H MCHC 33.6 RDW 11.6 L Plt Count 459 H MPV 8.5 Neut # (Auto) 7.1 H Lymph # (Auto) 2.3 Amelia # (Auto) 0.6 Eos # (Auto) 0.3 Baso # (Auto) 0.1 Absolute Nucleated RBC 0.00 Nucleated RBC % 0.0 Sodium 134 L Potassium 3.6 Chloride 99 L Carbon Dioxide 27 Anion Gap 8.0 BUN 8 Creatinine 0.7 Estimated GFR (MDRD) 87 L Glucose 94 Calcium 9.9 Total Bilirubin 0.3 AST 34 ALT 45 Alkaline Phosphatase 68 Total Protein 7.1 Albumin 4.5 Globulin 2.6 Albumin/Globulin Ratio 1.7 Lipase 65 Urine Color YELLOW Urine Clarity CLEAR Urine pH 7.0 Ur Specific [place] <=1.005 Urine Protein NEGATIVE Urine Glucose (UA) NEGATIVE Urine Ketones NEGATIVE Urine Occult Blood NEGATIVE Urine Nitrite NEGATIVE Urine Bilirubin NEGATIVE Urine Urobilinogen 0.2 (NORMAL) Ur Leukocyte Esterase NEGATIVE Ur Microscopic Review NOT INDICATED Urine Culture Comments NOT INDICATED - Rads (name of study) CT a/p Relevant Findings:: Final report received, See rad report (expected post-op findings, no acute concerns.) PD Medical Decision Making - ED course Complexity details: reviewed old records, reviewed results, re-evaluated patient, considered differential, d/w patient ED course: The patient was evaluated with laboratory studies which were unremarkable, including a normal white blood cell count. CT scan of the abdomen and pelvis with IV contrast was also ordered. The patient had been on broad-spectrum antibiotics and I was concerned about the possibility of C. difficile of diarrhea. Stool sample was ordered to this end, as well. CT was unremarkable, other than for expected recent post-op findings. Pt was unable to produce enough stool during several hours in the ED to be able to evaluate in the lab. She was stable for d/c home. I d/w pt that she should call Dr. Foster' office in the morning to see if they can send an outpatient lab order for C. diff, and pt can bring a stool sample in tomorrow. We have given her a cup for this from the ED to take home with her. I later had to speak with Dr. Foster about another case, and we discussed the outcome of this one, as well. He did agree with the plan for outpatient stool sample, and stated he would enter an order right then. The pt was discharged in stable condition. Departure - Departure Disposition: 01 Home, Self Care Clinical Impression: Postoperative lower abdominal pain Diarrhea Qualifiers: Diarrhea type: unspecified type Qualified Code(s): R19.7 - Diarrhea, unspecified Condition: Stable Instructions: ED Diet Vomiting Diarrhea, ED Post Op Pain Comments: Your labs and CT look good. Unfortunately, you are not able to give us a stool sample and so we have not been able to test you for C. difficile. We have given you a cup and you may collect a stool sample overnight or in the morning. Please call your surgeon's office first thing tomorrow to request a lab order for stool analysis for C. difficile so you can take your sample to the lab directly without having to have an appointment in surgery clinic or check back into the emergency department. Please drink plenty of fluids to stay hydrated. Please follow-up with your surgeon for your postop visit as scheduled. Forms: PCP List Discharge Date/Time: 07/02/23 18:22
[2023-07-02] MEDS ORDERED: iohexoL-300 100 ML VIAL ONE (16:26)
[2023-07-02 16:57] VITALS: BP 116/75
[2023-07-02] MEDS: iohexoL-300 100 ML VIAL IVP ONE (17:08)
--- NOTE | 2023-07-02 17:28 | CT Report ---
PROCEDURE: Abdomen/Pelvis W INDICATIONS: incr. abd pain 12 d s/p appy CONTRAST: Omni 300 100ml TECHNIQUE: After the administration of intravenous contrast, a CT scan of the abdomen and pelvis was performed. Images were recorded and evaluated at appropriate window settings. Reformats: coronal and sagittal. F or radiation dose reduction, the following was used: automated exposure control, adjustment of mA and /or kV according to patient size. COMPARISON: CT abdomen pelvis dated 06/20/2023. FINDINGS: Image quality: Diagnostic. Lower chest: Unremarkable. Liver: No solid mass. Hepatic hypodensities unchanged likely representing cysts or hemangiomas. Gallbladder and biliary tree: No radiopaque stones or wall thickening. No biliary dilation. Spleen: No splenomegaly. Pancreas: No pancreatic ductal dilation. Adrenals: No adrenal nodule. Kidneys and ureters: No hydronephrosis. No renal cystic lesion which requires follow up. No solid mas s. Stomach, bowel and peritoneum: No bowel distension. No pathologic free fluid. Expected post surgical changes of interval appendectomy. No evidence for free air or organized fluid collection seen. No gail dence for bowel obstruction. Lymph nodes: No central or retroperitoneal adenopathy. Vessels: No infrarenal aortic aneurysm. PELVIS Reproductive organs: Unremarkable. Postoperative changes of prior bilateral tubal ligation. Bladder: No abnormal wall thickening, accounting for underdistention. Pelvic lymph nodes: No pelvic adenopathy by size criteria. Bones: No aggressive osseous abnormality. Other: No significant ventral or inguinal hernia. IMPRESSION: Status post interval appendectomy. No evidence for abnormal postsurgical fluid collections. No free a ir. Otherwise, no acute abnormalities identified in the abdomen or pelvis. Reviewed by: Sam Tilley MD on 07/02/2023 5:26 PM PDT Approved by: Sam Tilley MD on 07/02/2023 5:26 PM PDT Station ID: [id number]
== END 2023-07-02 18:22 | disposition home or self-care (01) ==
LOC: ED 13:01
DX: R10.32 Left lower quadrant pain (principal); R10.31 Right lower quadrant pain; R19.7 Diarrhea, unspecified; Z98.890 Other specified postprocedural states
CPT/HCPCS: 36415; 74177; 80053; 81003; 83690; 85025; 99283; 99284; Q9967; 81001; 87086

== ENCOUNTER 2023-07-03 10:47 | Outpatient (CLI) | payer OTHER | END 2023-07-03 10:48 | disposition home or self-care (01) | LOC: LAB.R 10:47 | PROVIDERS: ATTEND Surgery | DX: R19.7 Diarrhea, unspecified (principal); Z90.89 Acquired absence of other organs | CPT/HCPCS: 87493 ==